=== PATIENT | female | born 1960 | race Hispanic/Latino ===

== ENCOUNTER 2018-12-22 21:25 | Inpatient (IN) | payer SELFPAY ==
[~2018-12-22 21:25] MED LIST: ADRENALIN ONE; INTROPIN DRIP 800 MG/D5W 250 ML IV ONE
[2018-12-22] MEDS ORDERED: NACL 0.9% 1000 ML 1,000 ML ONE ×2 (21:29→21:30)
[2018-12-22] MEDS ORDERED: LACTATED RINGERS 1,000 ML ONE (21:30)
[2018-12-22] MEDS ORDERED: NACL 0.9% 1000 ML 2,000 ML ONE (21:40)
[2018-12-22] MEDS ORDERED: LACTATED RINGERS 1,000 ML IV ONE (21:45)
[2018-12-22] MEDS ORDERED: NACL 0.9% 1000 ML 3,000 ML IV ONE (21:45)
[2018-12-22] MEDS ORDERED: NACL 0.9% 500 ML 500 ML IV ONE (21:57)
[2018-12-22] MEDS ORDERED: LEVOPHED DRIP 4 MG/NS 250 ML 4 MG/250 ML BAG IV ONE (22:03)
[2018-12-22] MEDS: LEVOPHED DRIP 4 MG/NS 250 ML 4 MG/250 ML BAG IV SCH (22:05)
--- NOTE | 2018-12-22 22:17 | Emergency Department Report ---
ED CPR HPI - General Chief Complaint: Cardiac Arrest/CPR Stated Complaint: CARDIC ARREST Time Seen by Provider: 12/22/18 22:10 Source: EMS Mode of arrival: Stretcher Limitations: Other - History of Present Illness Initial Comments: Patient is 58 years old female with history of hypertension, noncompliant with her medication per family report. Patient brought to the emergency room via EMS in full cardiac arrest, CPR in progress. Patient is a witnessed arrest. Patient was walking with her family and all of a sudden she collapsed at approximately 20:33. EMS stated that there was a retained CIRCULATION in the field but patient lost her pulse quickly. Patient initial rhythm was a PEA. Upon arrival to the ER, patient immediately intubated by me after we removed the Yayo airway. CPR continued. ACLS protocol initiated and followed in the ER. A right femoral central line was placed by me for blood and fluid resuscitation. I noticed a round of coffee secretion coming from the Yayo indicating a massive upper GI hemorrhage. I immediately called for 2 units PRBC for emergency transfusion. Patient continued to be in and out of pulse. Patient received approximately 4 L of normal saline and 1 L of lactated Ringer and a 2 units of PRBC. NG tube suctioned a large amount of blood. Patient regained her pulse and a good blood pressure. Patient also started on Levophed drip. I discussed the patient is Dr. Hamilton from gastroenterology. Dr. Hamilton advised to continue resuscitation in here with follow-up on the patient. Complaint: collapsed during activity -: minute(s) (33), hour(s) (20) Place: street Bystander CPR Performed: No Initial Findings in the Field: no pulse, PEA ROSC in the Field: Yes (for 3 minutes) Treatments Prior to Arrival: other airway device - Related Data Allergies Allergy/AdvReac Type Severity Reaction Status Date / Time Unable to Assess Allergy Verified 12/22/18 22:01 ED Review of Systems ROS: Stated complaint: CARDIC ARREST Other details as noted in HPI Comment: Unobtainable due to pts medical conditions ED Physical Exam - General Limitations: Other General appearance: other (CPR in progress) - Head Head exam: Present: atraumatic, normocephalic, normal inspection - Eye Pupils: Present: other (pupils are 4 mm, dilated and nonreactive.) - Neck Neck exam: Present: normal inspection - Respiratory Respiratory exam: Present: other (no spontaneous breathing) - Cardiovascular Cardiovascular Exam: Present: other (no spontaneous heart tones) - GI/Abdominal GI/Abdominal exam: Present: soft, distended - Extremities Exam Extremities exam: Present: normal inspection - Neurological Exam Neurological exam: Present: other (intubated) - Skin Skin exam: Present: warm, intact ED Course Vital Signs 12/22/18 12/22/18 12/22/18 21:28 21:30 21:45 Pulse Rate 80 98 H Respiratory 21 91 H 95 H Rate Blood Pressure 144/124 219/184 O2 Sat by Pulse 93 94 Oximetry 12/22/18 12/22/18 12/22/18 22:00 22:16 22:29 Pulse Rate 67 98 H 100 H Respiratory 14 24 Rate Blood Pressure 90/40 136/54 134/70 O2 Sat by Pulse 92 86 100 Oximetry 12/22/18 12/22/18 12/22/18 22:30 22:45 23:00 Pulse Rate 100 H 100 H 96 H Respiratory 24 16 10 L Rate Blood Pressure 134/70 133/67 129/68 O2 Sat by Pulse 99 100 100 Oximetry 12/22/18 12/22/18 12/22/18 23:15 23:30 23:32 Pulse Rate 98 H 99 H 99 H Respiratory 30 H 30 H 9 L Rate Blood Pressure 129/59 134/70 140/46 O2 Sat by Pulse 100 100 100 Oximetry 12/22/18 12/23/18 12/23/18 23:45 00:00 00:15 Pulse Rate 100 H 101 H 102 H Respiratory 8 L 5 L 20 Rate Blood Pressure 129/43 129/44 115/58 O2 Sat by Pulse 98 100 99 Oximetry 12/23/18 12/23/18 12/23/18 00:30 00:46 00:47 Pulse Rate 105 H 108 H 101 H Respiratory 22 7 L Rate Blood Pressure 115/55 125/43 O2 Sat by Pulse 100 99 100 Oximetry 12/23/18 12/23/18 12/23/18 01:00 01:49 02:00 Pulse Rate 109 H 107 H 106 H Respiratory 8 L 19 35 H Rate Blood Pressure 125/43 125/43 130/61 O2 Sat by Pulse 99 100 88 Oximetry 12/23/18 12/23/18 12/23/18 02:15 02:30 02:46 Pulse Rate 108 H 109 H 109 H Respiratory 32 H 20 12 Rate Blood Pressure 106/73 115/56 116/64 O2 Sat by Pulse 81 L Oximetry 12/23/18 12/23/18 12/23/18 03:00 03:15 03:30 Pulse Rate 109 H 110 H 110 H Respiratory 13 17 20 Rate Blood Pressure 108/65 104/53 57/40 O2 Sat by Pulse Oximetry 12/23/18 12/23/18 12/23/18 03:46 03:58 04:00 Pulse Rate 111 H 108 H 108 H Respiratory 14 15 Rate Blood Pressure 48/33 74/37 O2 Sat by Pulse 92 Oximetry 12/23/18 12/23/18 12/23/18 04:16 04:30 04:45 Pulse Rate 116 H 113 H 115 H Respiratory 15 21 13 Rate Blood Pressure 104/68 89/67 109/76 O2 Sat by Pulse Oximetry 12/23/18 12/23/18 12/23/18 05:00 05:16 05:30 Pulse Rate 113 H 115 H 114 H Respiratory 14 17 20 Rate Blood Pressure 98/43 80/52 80/52 O2 Sat by Pulse Oximetry 12/23/18 12/23/18 12/23/18 05:46 06:00 06:16 Pulse Rate 122 H 121 H 120 H Respiratory 14 16 14 Rate Blood Pressure 136/77 136/77 93/69 O2 Sat by Pulse Oximetry 12/23/18 12/23/18 12/23/18 06:30 06:46 07:00 Pulse Rate 119 H 129 H 124 H Respiratory 14 23 17 Rate Blood Pressure 108/87 108/87 93/69 O2 Sat by Pulse Oximetry 12/23/18 12/23/18 07:16 07:30 Pulse Rate 118 H 119 H Respiratory 20 15 Rate Blood Pressure 119/89 120/74 O2 Sat by Pulse Oximetry - Reevaluation(s) Reevaluation #1: 12/23/18 01:05 Patient evaluated by me multiple times. Patient's family arrived to the ER in able to provide more information. Patient has no stated that patient was sick for the last 3 days with cough and decreased by mouth intake. He stated that she was sitting on the edge of the bed and all of a sudden she change blue he stated that he started CPR on her until the EMS arrived. Patient has been also added that she is a heavy alcohol drinker but she did not drink anything for the last 4 days. I did a CTA chest to rule out pulmonary embolism. - Central Line Placement Right Femoral Consent Obtained: emergent situation Time Out Performed: Yes Patient Placed on Monitor/Pulse Ox: Yes MD Prep: mask, gown, gloves Central Line Prep: Povidone-Iodine 1%, Chlorhexidine scrub, sterile drapes applied Local Anesthesia Used: Lidocaine 2% Central Line Lumen Inserted: triple Central Line Position: good blood return, all ports aspirated, flus, sutured in place with 2-0 Dressing Applied: Tegaderm, sterile gauze/tape Patient Tolerated Procedure: well, no complications Complications: none - Intubation Time Out Performed: Yes Sedative: Etomidate Paralytic: Succinylcholine Laryngoscope: Patricia Size: 4 ET Tube Size: 7.5 Tube Secured Location: teeth Tube Placement Confirmation: visualized tube passing t, equal breath sounds bilat, no breath sounds over epi, confirmation by capnometr Patient Tolerated Procedure: well, no complications Intubation Complications: none ED Medical Decision Making - Lab Data Result diagrams: 12/23/18 07:16 12/23/18 04:24 - Radiology Data Radiology results: report reviewed - Medical Decision Making Patient is 58 years old female with history of hypertension, noncompliant with her medication per family report. Patient brought to the emergency room via EMS in full cardiac arrest, CPR in progress. Patient is a witnessed arrest. Patient was walking with her family and all of a sudden she collapsed at approximately 20:33. EMS stated that there was a retained CIRCULATION in the field but patient lost her pulse quickly. Patient initial rhythm was a PEA. Upon arrival to the ER, patient immediately intubated by me after we removed the Yayo airway. CPR continued. ACLS protocol initiated and followed in the ER. A right femoral central line was placed by me for blood and fluid resuscitation. I noticed a round of coffee secretion coming from the Yayo indicating a massive upper GI hemorrhage. I immediately called for 2 units PRBC for emergency transfusion. Patient continued to be in and out of pulse. Patient received approximately 4 L of normal saline and 1 L of lactated Ringer and a 2 units of PRBC. NG tube suctioned a large amount of blood. Patient regained her pulse and a good blood pressure. Patient also started on Levophed drip. I discussed the patient is Dr. Hamilton from gastroenterology. Dr. Hamilton advised to continue resuscitation in here with follow-up on the patient. I discussed the patient with Dr. Viv Bhatt, she'll return in the patient to medical service. Critical Care Time: Yes Critical care time in (mins) excluding proc time.: 90 Critical care attestation.: If time is entered above; I have spent that time in minutes in the direct care of this critically ill patient, excluding procedure time. ED Disposition Clinical Impression: Cardiopulmonary arrest, GI (gastrointestinal hemorrhage), Elevated liver enzymes, Septic shock, Bilateral pneumonia Disposition: [id number] OP ADMIT IP TO THIS HOSP Is pt being admited?: Yes Condition: Stable
[2018-12-22] MEDS ORDERED: LEVOPHED DRIP 4 MG/NS 250 ML 4 MG/250 ML BAG IV SCH (23:00)
--- NOTE | 2018-12-22 23:02 | XRay Report ---
PROCEDURE: XR CHEST 1V AP TECHNIQUE: Chest radiograph single view. HISTORY: cardiac arrest COMPARISONS: None . FINDINGS: Heart: Normal. Mediastinum/Vessels: Normal. Lungs/Pleural space: Patchy densities are noted in bilateral lower lungs and left upper lung. There is diffuse prominence of interstitial markings. Pleural spaces are clear.. Bony thorax: No acute osseous abnormality. Life support devices: Endotracheal tube is noted terminating about 6.4 cm above the kristine. A nasogas tric tube is seen to extend down into the abdomen and its tip is not included in this study.. IMPRESSION: Infiltrates in bilateral lungs consistent with pneumonia. Prominent interstitial markings may represent interstitial fibrosis versus interstitial edema.. This document is electronically signed by Stanford Beckham MD., Dec 22 2018 11:00:37 PM ET
[2018-12-22 23:08] LABS: Mean Corpuscular HGB Conc 31 % (30-34); Mean Corpuscular Volume 102 fl (79-97); Platelet Count 128 K/mm3 (140-440); Red Cell Distribution Width 17.5 % (13.2-15.2)
[2018-12-22 23:09] LABS: Hematocrit 44.7 % (30.3-42.9); Hemoglobin 13.6 gm/dl (10.1-14.3)
[2018-12-22 23:18] LABS: Calcium 7.1 mg/dL (8.4-10.2)
[2018-12-22 23:22] LABS: Albumin 2.3 g/dL (3.9-5); Bilirubin,Direct 0.6 mg/dL (0-0.2)
[2018-12-22] MEDS ORDERED: ZOSYN/NS 3.375GM/50ML 3.375 GM/50 ML BAG IV ONE (23:27)
[2018-12-22 23:59] LABS: Bacteria,Urine 1+ /HPF (Negative); Bilirubin,Urine NEG (Negative); Blood,Urine NEG (Negative); Color,Urine Amber (Yellow); Hyaline Casts,Urine 8 /LPF; Mucus,Urine 3+ /HPF
[2018-12-23 00:02] LABS: Alanine Aminotransferase TNR units/L (7-56)
[2018-12-23] MEDS ORDERED: LACTATED RINGERS 1,000 ML IV ONE (01:33)
[2018-12-23 01:41] LABS: Alanine Aminotransferase 4619 units/L (7-56)
--- NOTE | 2018-12-23 02:10 | Cat Scan Report ---
PROCEDURE: CT ANGIO CHEST TECHNIQUE: Computerized tomographic angiography of the chest was performed after the IV injection of iodinated nonionic contrast including image processing. The image data was postprocessed using 2-di mensional multiplanar reformatted (MPR) and 3-dimensional (MIP and/or volume rendered) techniques. Au tomated exposure control, adjustment of mA and/or kV according to patient size, or iterative reconstr uction dose optimization techniques were utilized. CT DOSE LENGTH PRODUCT: mGycm HISTORY: cardiac arrest/g g i bleed COMPARISONS: Portable chest 12/22/2018 . FINDINGS: Heart and pericardium: Normal. Thoracic aorta: Normal. Pulmonary vasculature: No evidence of pulmonary embolus. The lungs appear congested.. Lymph nodes: There are several small benign-appearing prevascular space lymph nodes in the mediastin um.. Lungs: The lungs reveal generalized interstitial prominence with reticulonodular infiltrates in both upper lobes lingula right middle lobe. There is extensive consolidation in both lower lobes.. Pleural space: No effusion, thickening, or pneumothorax. Musculoskeletal structures: There are bilateral acute fractures of the third through eighth ribs ant eriorly presumably related to the CPR procedure. Upper abdominal structures: The NG tube is in good position the stomach. There is minimal free fluid along the right hepatic lobe. The endotracheal tube tip is in good position above the kristine.. IMPRESSION: Pulmonary vascular congestion with extensive interstitial changes in both lungs as described. There i s consolidation in both lower lobes. How much of the latter findings related to pulmonary edema versu s pneumonia is uncertain. No evidence of pulmonary embolus or aortic dissection. Satisfactory positioning of the ET tube and NG tube. Acute fractures of the left and right third through eighth ribs anteriorly bilaterally presumably due to CPR procedure.. This document is electronically signed by Josué Canales MD., Dec 23 2018 02:08:24 AM ET
[2018-12-23 02:14] LABS: Hematocrit 53.3 % (30.3-42.9); Hemoglobin 16.8 gm/dl (10.1-14.3)
--- NOTE | 2018-12-23 02:22 | Cat Scan Report ---
PROCEDURE: CT HEAD/BRAIN WO CON TECHNIQUE: Computerized tomography of the head was performed without contrast material. HISTORY: AMS COMPARISONS: None . FINDINGS: Skull and scalp: Normal . Paranasal sinuses: Moderate opacification of the ethmoid and sphenoid sinuses . Ventricles and subarachnoid spaces: The ventricles are slightly small on this study. . . Cerebrum: There is diffuse loss of the sulci identified on this study. The findings are consistent w ith a diffuse anoxic/hypoxic brain injury. . Cerebellum and brainstem: There is no evidence of acute hemorrhage or hematoma. There is some loss o f the cistern surrounding the cerebellar and brainstem region. No herniation is seen on this study. . Vasculature: Normal . Other: None . ASPECTS: 10 IMPRESSION: There is diffuse loss of the sulci involving the cerebral hemispheres. The findings are most consistent with a diffuse anoxic/hypoxic brain injury. No acute hemorrhage or hematoma is seen. There is some loss of the cistern surrounding the cerebellar region as well as the brainstem. No chapis iation is seen on this study. . This document is electronically signed by Gisel Sims DO., Dec 23 2018 02:20:52 AM ET
--- NOTE | 2018-12-23 02:37 | Cat Scan Report ---
PROCEDURE: CT ABDOMEN PELVIS W CON TECHNIQUE: Computerized axial tomography of the abdomen and pelvis was performed after the IV inject ion of iodinated nonionic contrast. CT DOSE LENGTH PRODUCT: mGycm HISTORY: abdominal pain COMPARISONS: None . FINDINGS: Visualized lower thorax: There are extensive infiltrates in both lower lobes with congestion.. Liver: Liver is normal in size. There is a thin low density fluid collection along the right hepatic lobe. This is most likely ascites.. Spleen: Normal size and attenuation. Gallbladder and biliary system: The gallbladder is normal in size. There is pericholecystic fluid marlene und the gallbladder. Stones are not seen.. Pancreas: The pancreas normal size. There is mild peripancreatic edema.. Adrenals: Normal. Kidneys: The kidneys show no evidence of stones or hydronephrosis. The nephrogram is slightly heterog eneous bilaterally.. This may be related to hypoperfusion related to the cardiac arrest.. GI tract: There is moderate distention with air-fluid levels involving multiple small bowel loops co mpatible with a partial mechanical small bowel obstruction the level of the distal ileum. The colon i s decompressed. There are multiple uncomplicated diverticula in the descending and sigmoid colon. The appendix is not seen. The tip of NG tube is in good position in the mid stomach. . Lymph nodes and mesentery: Normal. Vasculature: Normal.. Bladder: There is a Call catheter in the bladder which is decompressed.. Reproductive organs: Normal. Peritoneum: Small amount of free fluid along the right hepatic lobe.. Musculoskeletal structures: Multilevel disc degeneration in the lower thoracic and lumbar spine.. Other: None . IMPRESSION: Partial mechanical small bowel obstruction believed to be at the level of the distal ileum. Uncomplicated colonic diverticulosis. Appendix not identified with certainty. Heterogeneous nephrograms noted bilaterally as described. This may be related to hypoperfusion relate d to the cardiac arrest. Mild pericholecystic fluid and mild edematous changes around the pancreas. Correlation with clinical exam along with serum amylase and lipase recommended. Small amount of ascites along the right hepatic lobe. Extensive infiltrates in both lower lobes. Multilevel disc degeneration in the lower thoracic and lumbar spine. This document is electronically signed by Josué Canales MD., Dec 23 2018 02:35:07 AM ET
[2018-12-23] MEDS ORDERED: SandoSTATIN 500 MCG in NACL 0.9% 100 ML IV SCH (03:17)
[2018-12-23] MEDS ORDERED: SODIUM CHLORIDE FLUSH SYRINGE 10 ML IV PRN (03:19)
[2018-12-23] MEDS ORDERED: ZOFRAN IV PRN (03:19)
[2018-12-23] MEDS ORDERED: VANCOMYCIN/NS 1 GM/250 ML 1 GM/250 ML BAG IV ONE (03:27)
--- NOTE | 2018-12-23 03:30 | History and Physical Report ---
History of Present Illness Date of examination: 12/23/18 History of present illness: 58 -year-old woman with known medical problems was brought to the emergency room because she collapse at home. Spouse admits that state that since last week she has not been feeling well, she had cough productive of yellow phlegm, shortness of breath, generalized weakness, decrease in her ADLs, decreased appetite and sleeping alot. She took a shower last night and complained of her shoulders were hurting, the house and was given her muscle which then she became unresponsive. he started CPR and continued for about 6 minutes before EMS arrived. CPR was continued here in the hospital, she was intubated in the emergency room. There was about 400 mL of blood that was suctioned. Hypotensive, started on the levophed and dopamine drip, given Zosyn. Review of system is unobtainable PAST MEDICAL HISTORY:None PAST SURGICAL HISTORY: None SOCIAL HISTORY: drink i bottle of wine a day, no drugs, smoke 1 pack a day FAMILY HISTORY: Hypertension Medications and Allergies Allergies Allergy/AdvReac Type Severity Reaction Status Date / Time Unable to Assess Allergy Verified 12/22/18 22:01 Active Meds: Active Medications Norepinephrine (Levophed Drip 4 Mg/Ns 250 Ml) 4 mg in 250 mls @ 7.5 mls/hr IV TITR BUD; Protocol Last Admin: 12/22/18 22:05 Dose: 2.67 mcg/min, 10 mls/hr Documented by: Pantoprazole Sodium 80 mg/ (Sodium Chloride) 100 mls @ 10 mls/hr IV DIRECT BUD Octreotide Acetate 500 mcg/ (Sodium Chloride) 101 mls @ 5.05 mls/hr IV TITR ONE; Protocol Stop: 12/23/18 23:16 Sodium Chloride (Nacl 0.9% 1000 Ml) 1,000 mls @ 75 mls/hr IV DIRECT BUD Ondansetron HCl (Zofran) 4 mg IV Q4H PRN PRN Reason: Nausea And Vomiting Sodium Bicarbonate (Sodium Bicarbonate 50meq Syringe) 100 meq IV ONCE ONE Stop: 12/23/18 03:25 Sodium Chloride (Sodium Chloride Flush Syringe 10 Ml) 10 ml IV BID BUD Sodium Chloride (Sodium Chloride Flush Syringe 10 Ml) 10 ml IV PRN PRN PRN Reason: LINE FLUSH Exam - Physical Exam Narrative exam: General Apperance: The patient lying in bed, breathing comfortable, intubated HEENT: Normocephalic, atraumatic. Pupils equally round and minimally reactive to light, unable to do EOM, no sclericterus or JVD or thyromegaly or nodule. , no carotid bruit, mucous membranes moist, unable to examine oral cavity, ET tube in place Heart: S1-S2, regular is rhythm Lungs: Clear to auscultation bilaterally, breathing comfortable Abdomen: Decreased bowel sounds, soft, nondistended, no organomegaly Extremities: Feet are cold, No edema cyanosis clubbing Skin: no rash, nodule, warm and dry Neuro: Sedated - Constitutional Vitals: Temp Pulse Resp BP Pulse Ox 108 H 32 H 106/73 88 12/23/18 02:15 12/23/18 02:15 12/23/18 02:15 12/23/18 02:00 Results - Labs CBC & Chem 7: 12/23/18 07:16 12/23/18 04:24 Labs: Abnormal lab results 12/22/18 12/22/18 12/22/18 Range/Units 21:40 21:50 22:37 WBC (4.5-11.0) K/mm3 Hgb (10.1-14.3) gm/dl Hct (30.3-42.9) % MCV (79-97) fl RDW (13.2-15.2) % Plt Count (140-440) K/mm3 POC ABG pH (7.35-7.45) POC ABG pO2 (80-105) Sodium (137-145) mmol/L Potassium (3.6-5.0) mmol/L Chloride (98-107) mmol/L Carbon Dioxide (22-30) mmol/L BUN (7-17) mg/dL Glucose (65-100) mg/dL POC Glucose 142 H (70-105) Lactic Acid (0.7-2.0) mmol/L Calcium (8.4-10.2) mg/dL Direct Bilirubin (0-0.2) mg/dL AST (5-40) units/L ALT (7-56) units/L Alkaline Phosphatase (35-129) units/L Total Protein (6.3-8.2) g/dL Albumin (3.9-5) g/dL Urine WBC (Auto) (0.0-6.0) /HPF Crossmatch See Detail See Detail 12/22/18 12/22/18 12/22/18 Range/Units 22:55 22:55 22:55 WBC 32.1 H (4.5-11.0) K/mm3 Hgb (10.1-14.3) gm/dl Hct 44.7 H (30.3-42.9) % MCV 102 H (79-97) fl RDW 17.5 H (13.2-15.2) % Plt Count 128 L (140-440) K/mm3 POC ABG pH (7.35-7.45) POC ABG pO2 (80-105) Sodium 134 L (137-145) mmol/L Potassium 5.8 H (3.6-5.0) mmol/L Chloride 94.6 L (98-107) mmol/L Carbon Dioxide 17 L (22-30) mmol/L BUN 54 H (7-17) mg/dL Glucose 193 H (65-100) mg/dL POC Glucose (70-105) Lactic Acid (0.7-2.0) mmol/L Calcium 7.1 L (8.4-10.2) mg/dL Direct Bilirubin 0.6 H (0-0.2) mg/dL AST (5-40) units/L ALT (7-56) units/L Alkaline Phosphatase 149 H (35-129) units/L Total Protein 4.7 L (6.3-8.2) g/dL Albumin 2.3 L (3.9-5) g/dL Urine WBC (Auto) (0.0-6.0) /HPF Crossmatch 12/22/18 12/22/18 12/22/18 Range/Units 23:02 23:10 23:41 WBC (4.5-11.0) K/mm3 Hgb (10.1-14.3) gm/dl Hct (30.3-42.9) % MCV (79-97) fl RDW (13.2-15.2) % Plt Count (140-440) K/mm3 POC ABG pH 6.770 L (7.35-7.45) POC ABG pO2 245 H (80-105) Sodium (137-145) mmol/L Potassium (3.6-5.0) mmol/L Chloride (98-107) mmol/L Carbon Dioxide (22-30) mmol/L BUN (7-17) mg/dL Glucose (65-100) mg/dL POC Glucose (70-105) Lactic Acid 11.80 H* (0.7-2.0) mmol/L Calcium (8.4-10.2) mg/dL Direct Bilirubin (0-0.2) mg/dL AST (5-40) units/L ALT (7-56) units/L Alkaline Phosphatase (35-129) units/L Total Protein (6.3-8.2) g/dL Albumin (3.9-5) g/dL Urine WBC (Auto) 16.0 H (0.0-6.0) /HPF Crossmatch 12/23/18 12/23/18 12/23/18 Range/Units 00:14 00:47 01:56 WBC (4.5-11.0) K/mm3 Hgb 16.8 H D (10.1-14.3) gm/dl Hct 53.3 H D (30.3-42.9) % MCV (79-97) fl RDW (13.2-15.2) % Plt Count (140-440) K/mm3 POC ABG pH 6.963 L (7.35-7.45) POC ABG pO2 339 H (80-105) Sodium (137-145) mmol/L Potassium (3.6-5.0) mmol/L Chloride (98-107) mmol/L Carbon Dioxide (22-30) mmol/L BUN (7-17) mg/dL Glucose (65-100) mg/dL POC Glucose (70-105) Lactic Acid (0.7-2.0) mmol/L Calcium (8.4-10.2) mg/dL Direct Bilirubin (0-0.2) mg/dL AST 9955 H (5-40) units/L ALT 4619 H (7-56) units/L Alkaline Phosphatase (35-129) units/L Total Protein (6.3-8.2) g/dL Albumin (3.9-5) g/dL Urine WBC (Auto) (0.0-6.0) /HPF Crossmatch 12/23/18 Range/Units 01:56 WBC (4.5-11.0) K/mm3 Hgb (10.1-14.3) gm/dl Hct (30.3-42.9) % MCV (79-97) fl RDW (13.2-15.2) % Plt Count (140-440) K/mm3 POC ABG pH (7.35-7.45) POC ABG pO2 (80-105) Sodium (137-145) mmol/L Potassium (3.6-5.0) mmol/L Chloride (98-107) mmol/L Carbon Dioxide (22-30) mmol/L BUN (7-17) mg/dL Glucose (65-100) mg/dL POC Glucose (70-105) Lactic Acid 9.00 H* (0.7-2.0) mmol/L Calcium (8.4-10.2) mg/dL Direct Bilirubin (0-0.2) mg/dL AST (5-40) units/L ALT (7-56) units/L Alkaline Phosphatase (35-129) units/L Total Protein (6.3-8.2) g/dL Albumin (3.9-5) g/dL Urine WBC (Auto) (0.0-6.0) /HPF Crossmatch - Imaging and Cardiology CT scan - abdomen: report reviewed CT scan - chest: report reviewed CT Scan - head: report reviewed CT scan - pelvis: report reviewed Assessment and Plan Cardiac arrest Acute respiratory failure Septic shock Bilateral pneumonia in light small bowel obstruction Upper GI bleed Partial small bowel obstruction Anoxic brain injury Urinary tract infection Hyperkalemia Notable rib fractures Shock liver Alcohol abuse Plan Admit to medicine Continue Levophed, dopamkine drip, start iv fluid, antibiotics Start Protonix, octreotide drip, check serial hemoglobin Consult GI, critical care, cardiology Check cardiac enzymes, echo, PT/INR G-tube in place, consult surgery Give cocktail for hyperkalemia Prognosis is poor, discussed with and sister at bedside DVT prophylaxis Addendum Coagulopathy, transfuse 1 unit FFP
[2018-12-23] MEDS ORDERED: CALCIUM CHLORIDE 1,000 MG in NACL 0.9% 100 ML IV ONE (03:31)
[2018-12-23] MEDS ORDERED: KIONEX PR ONE (03:31)
[2018-12-23] MEDS ORDERED: D50W (25GM) Syringe IV ONE (03:32)
[2018-12-23] MEDS ORDERED: HumuLIN R SUB-Q ONE (03:33)
[2018-12-23] MEDS ORDERED: NACL 0.9% 1000 ML 1,000 ML ONE (03:36)
[2018-12-23] MEDS ORDERED: PROTONIX 80 MG in NACL 0.9% 100 ML IV SCH (04:00)
[2018-12-23] MEDS ORDERED: NACL 0.9% 1000 ML 1,000 ML IV SCH ×2 (04:00→10:00)
[2018-12-23 04:08] LABS: Hematocrit 49.6 % (30.3-42.9); Hemoglobin 16.3 gm/dl (10.1-14.3); Mean Corpuscular HGB Conc 33 % (30-34); Mean Corpuscular Volume 94 fl (79-97); Red Blood Count 5.26 M/mm3 (3.65-5.03); Red Cell Distribution Width 17.3 % (13.2-15.2)
[2018-12-23] MEDS: LEVOPHED DRIP 4 MG/NS 250 ML 4 MG/250 ML BAG IV SCH (04:20)
[2018-12-23 04:43] LABS: Calcium 8.1 mg/dL (8.4-10.2)
[2018-12-23 05:15] LABS: INR 3.81 (0.87-1.13)
[2018-12-23 05:16] LABS: Partial Thromboplastin Time 48.7 Sec. (24.2-36.6)
[2018-12-23 05:36] LABS: Chol/HDL Ratio 6.25 %
[2018-12-23] MEDS ORDERED: ZOSYN/NS 4.5GM/100ML 4.5 GM/100 ML VIAL IV SCH (06:00)
[2018-12-23 06:12] LABS: Band Neutrophils # (Manual) 2.9 K/mm3; Basophils % (Manual) 0 % (0.0-1.8); Eosinophils % (Manual) 0 % (0.0-4.3); Monocytes % (Manual) 3.5 % (0.0-7.3); Nucleated Red Blood Cells 11.5 % (0.0-0.9); Total Cells Counted 200
[2018-12-23 06:13] LABS: Anisocytosis 1+
[2018-12-23 06:14] LABS: Platelet Estimate Consistent w Auto
[2018-12-23 06:22] LABS: Macrocytosis 1+
[2018-12-23] MEDS ORDERED: NACL 0.9% 500 ML 500 ML IV ONE (06:36)
[2018-12-23 06:41] LABS: Platelet Count 96 K/mm3 (140-440)
[2018-12-23 06:56] LABS: Basophils % (Manual) 0 % (0.0-1.8); Total Cells Counted 200
[2018-12-23 06:57] LABS: Anisocytosis 1+; Band Neutrophils # (Manual) 3.6 K/mm3; Eosinophils % (Manual) 0 % (0.0-4.3); Macrocytosis 1+; Nucleated Red Blood Cells 12.5 % (0.0-0.9); Platelet Estimate Consistent w Auto
[2018-12-23 07:28] LABS: Hematocrit 51.1 % (30.3-42.9); Hemoglobin 16.8 gm/dl (10.1-14.3)
--- NOTE | 2018-12-23 09:11 | Gastroenterology Consultation ---
History of Present Illness - Reason for Consult Consult date: 12/23/18 GI bleed Requesting physician: GLENROY LANDAVERDE - History of Present Illness Ms Espinal is a 58 yo wf with no known significant medical history who presented with dyspnea, fatigue, productive cough over several days; pt was in cardiac arrest upon arrival to the ED s/p ACLS with ROSC; history gathered from patient's at bedside and chart review. Pt currently intubated/on pressors. She was in her usual state of active health until ~1 week ago. she developed productive cough, complaints of sob, and worsening lethargy/fatigue. during CPR in the ED, pt had large amount of coffee ground output from NG; she has had no further active bleeding since arrival. Pt also with acute liver injury and elevated INR; no recent tylenol use or other new medications. Past History Past Medical History: other (unable to obtain) Past Surgical History: Other (no reported surgical history) Social history: other (UTO) Family history: other (UTO) Medications and Allergies Allergies Allergy/AdvReac Type Severity Reaction Status Date / Time Unable to Assess Allergy Verified 12/22/18 22:01 Active Meds: Active Medications Norepinephrine (Levophed Drip 4 Mg/Ns 250 Ml) 4 mg in 250 mls @ 7.5 mls/hr IV TITR BUD; Protocol Last Titration: 12/23/18 05:47 Dose: 5.33 mcg/min, 20 mls/hr Documented by: Pantoprazole Sodium 80 mg/ (Sodium Chloride) 100 mls @ 10 mls/hr IV DIRECT BUD Last Admin: 12/23/18 04:19 Dose: 8 mg/hr, 10 mls/hr Documented by: Octreotide Acetate 500 mcg/ (Sodium Chloride) 101 mls @ 5.05 mls/hr IV TITR BUD; Protocol Last Admin: 12/23/18 04:19 Dose: 25 mcg/hr, 5.05 mls/hr Documented by: Sodium Chloride (Nacl 0.9% 1000 Ml) 1,000 mls @ 75 mls/hr IV DIRECT BUD Last Admin: 12/23/18 04:20 Dose: 75 mls/hr Documented by: Piperacillin Sod/Tazobactam Sod (Zosyn/Ns 2.25 Gm/50ml) 2.25 gm in 50 mls @ 100 mls/hr IV Q6HR BUD Ondansetron HCl (Zofran) 4 mg IV Q4H PRN PRN Reason: Nausea And Vomiting Sodium Chloride (Sodium Chloride Flush Syringe 10 Ml) 10 ml IV BID BUD Sodium Chloride (Sodium Chloride Flush Syringe 10 Ml) 10 ml IV PRN PRN PRN Reason: LINE FLUSH Reviewed/updated patient's home and current medications Review of Systems - Review of Systems ROS unobtainable: due to endotracheal tube, due to mental status Exam - Constitutional Vital Signs: Temp Pulse Resp BP Pulse Ox 119 H 23 120/74 92 12/23/18 07:49 12/23/18 07:49 12/23/18 07:30 12/23/18 03:58 General appearance: other (intubated/sedated) - EENT ENT: other (+ OG tube) - Respiratory Respiratory effort: other (on vent) Respiratory: bilateral: diminished - Cardiovascular Rhythm: regular Heart Sounds: Present: S1 & S2 Extremity abnormal: pulses diminished - Gastrointestinal General gastrointestinal: Present: distended, hypoactive bowel sounds - Neurologic Neurological: other (intubated/sedation) - Psychiatric Psychiatric: other - Labs CBC & Chem 7: 12/23/18 07:16 12/23/18 04:24 Lab Results: Laboratory Results - last 24 hr 12/22/18 12/22/18 12/22/18 21:40 21:50 22:37 WBC RBC Hgb Hct MCV MCH MCHC RDW Plt Count Lymph # Add Manual Diff Total Counted Seg Neutrophils % Seg Neuts % (Manual) Band Neutrophils % Lymphocytes % (Manual) Reactive Lymphs % (Man) Monocytes % (Manual) Eosinophils % (Manual) Basophils % (Manual) Metamyelocytes % Myelocytes % Promyelocytes % Blast Cells % Nucleated RBC % Seg Neutrophils # Man Band Neutrophils # Lymphocytes # (Manual) Abs React Lymphs (Man) Monocytes # (Manual) Eosinophils # (Manual) Basophils # (Manual) Metamyelocytes # Myelocytes # Promyelocytes # Blast Cells # WBC Morphology Hypersegmented Neuts Hyposegmented Neuts Hypogranular Neuts Smudge Cells Toxic Granulation Toxic Vacuolation Dohle Bodies Pelger-Huet Anomaly Dave Rods Platelet Estimate Clumped Platelets Plt Clumps, EDTA Large Platelets Giant Platelets Platelet Satelliting Plt Morphology Comment RBC Morphology Dimorphic RBCs Polychromasia Hypochromasia Poikilocytosis Anisocytosis Microcytosis Macrocytosis Spherocytes Pappenheimer Bodies Sickle Cells Target Cells Tear Drop Cells Ovalocytes Helmet Cells [place] Bodies Muse Rings [place] Cells Bite Cells Crenated Cell Elliptocytes Acanthocytes (Spur) Rouleaux Hemoglobin C Crystals Schistocytes Malaria parasites Jesús Bodies Hem Pathologist Commnt PT INR APTT POC ABG pH POC ABG pCO2 POC ABG pO2 POC ABG HCO3 POC ABG Total CO2 POC ABG O2 Sat POC ABG Base Excess FiO2 Sodium Potassium Chloride Carbon Dioxide Anion Gap BUN Creatinine Estimated GFR BUN/Creatinine Ratio Glucose POC Glucose 142 H Lactic Acid Calcium Total Bilirubin Direct Bilirubin Indirect Bilirubin AST ALT Alkaline Phosphatase Total Creatine Kinase CK-MB (CK-2) CK-MB (CK-2) Rel Index Troponin T Total Protein Albumin Albumin/Globulin Ratio Triglycerides Cholesterol LDL Cholesterol Direct HDL Cholesterol Cholesterol/HDL Ratio Urine Color Urine Turbidity Urine pH Ur Specific [place] Urine Protein Urine Glucose (UA) Urine Ketones Urine Blood Urine Nitrite Urine Bilirubin Urine Urobilinogen Ur Leukocyte Esterase Urine WBC (Auto) Urine RBC (Auto) U Epithel Cells (Auto) Urine Bacteria (Auto) Hyaline Casts Urine Mucus Blood Type B POSITIVE Cancelled Antibody Screen TNR Cancelled MARK Antibody Screen Negative Crossmatch See Detail See Detail 12/22/18 12/22/18 12/22/18 22:55 22:55 22:55 WBC 32.1 H RBC 4.40 Hgb 13.6 Hct 44.7 H MCV 102 H MCH 31 MCHC 31 RDW 17.5 H Plt Count 128 L Lymph # Recreation Programmer Add Manual Diff Complete Total Counted 200 Seg Neutrophils % Seg Neuts % (Manual) 63.0 Band Neutrophils % 9.0 Lymphocytes % (Manual) 23.0 Reactive Lymphs % (Man) 1.5 Monocytes % (Manual) 3.5 Eosinophils % (Manual) 0 Basophils % (Manual) 0 Metamyelocytes % 0 Myelocytes % 0 Promyelocytes % 0 Blast Cells % 0 Nucleated RBC % 11.5 H Seg Neutrophils # Man 20.2 H Band Neutrophils # 2.9 Lymphocytes # (Manual) 7.4 H Abs React Lymphs (Man) 0.5 Monocytes # (Manual) 1.1 H Eosinophils # (Manual) 0.0 Basophils # (Manual) 0.0 Metamyelocytes # 0.0 Myelocytes # 0.0 Promyelocytes # 0.0 Blast Cells # 0.0 WBC Morphology Hypersegmented Neuts Not Reportable Hyposegmented Neuts Not Reportable Hypogranular Neuts Not Reportable Smudge Cells Not Reportable Toxic Granulation Not Reportable Toxic Vacuolation Not Reportable Dohle Bodies Not Reportable Pelger-Huet Anomaly Not Reportable Dave Rods Not Reportable Platelet Estimate Consistent w auto Clumped Platelets Not Reportable Plt Clumps, EDTA Not Reportable Large Platelets Not Reportable Giant Platelets Not Reportable Platelet Satelliting Not Reportable Plt Morphology Comment Not Reportable RBC Morphology Not Reportable Dimorphic RBCs Not Reportable Polychromasia Not Reportable Hypochromasia Not Reportable Poikilocytosis Not Reportable Anisocytosis 1+ Microcytosis Not Reportable Macrocytosis 1+ Spherocytes Not Reportable Pappenheimer Bodies Not Reportable Sickle Cells Not Reportable Target Cells Not Reportable Tear Drop Cells Not Reportable Ovalocytes Not Reportable Helmet Cells Not Reportable [place] Bodies Not Reportable Muse Rings Not Reportable [place] Cells Not Reportable Bite Cells Not Reportable Crenated Cell Not Reportable Elliptocytes Not Reportable Acanthocytes (Spur) Not Reportable Rouleaux Not Reportable Hemoglobin C Crystals Not Reportable Schistocytes Not Reportable Malaria parasites Not Reportable Jesús Bodies Not Reportable Hem Pathologist Commnt Sent to pathology PT INR APTT POC ABG pH POC ABG pCO2 POC ABG pO2 POC ABG HCO3 POC ABG Total CO2 POC ABG O2 Sat POC ABG Base Excess FiO2 Sodium 134 L Potassium 5.8 H Chloride 94.6 L Carbon Dioxide 17 L Anion Gap 28 BUN 54 H Creatinine 1.2 Estimated GFR 46 BUN/Creatinine Ratio 45 Glucose 193 H POC Glucose Lactic Acid Calcium 7.1 L Total Bilirubin 0.80 Direct Bilirubin 0.6 H Indirect Bilirubin 0.2 AST TNR ALT TNR Alkaline Phosphatase 149 H Total Creatine Kinase CK-MB (CK-2) CK-MB (CK-2) Rel Index Troponin T Total Protein 4.7 L Albumin 2.3 L Albumin/Globulin Ratio 1.0 Triglycerides Cholesterol LDL Cholesterol Direct HDL Cholesterol Cholesterol/HDL Ratio Urine Color Urine Turbidity Urine pH Ur Specific [place] Urine Protein Urine Glucose (UA) Urine Ketones Urine Blood Urine Nitrite Urine Bilirubin Urine Urobilinogen Ur Leukocyte Esterase Urine WBC (Auto) Urine RBC (Auto) U Epithel Cells (Auto) Urine Bacteria (Auto) Hyaline Casts Urine Mucus Blood Type Antibody Screen MARK Antibody Screen Crossmatch 12/22/18 12/22/18 12/22/18 23:02 23:10 23:41 WBC RBC Hgb Hct MCV MCH MCHC RDW Plt Count Lymph # Add Manual Diff Total Counted Seg Neutrophils % Seg Neuts % (Manual) Band Neutrophils % Lymphocytes % (Manual) Reactive Lymphs % (Man) Monocytes % (Manual) Eosinophils % (Manual) Basophils % (Manual) Metamyelocytes % Myelocytes % Promyelocytes % Blast Cells % Nucleated RBC % Seg Neutrophils # Man Band Neutrophils # Lymphocytes # (Manual) Abs React Lymphs (Man) Monocytes # (Manual) Eosinophils # (Manual) Basophils # (Manual) Metamyelocytes # Myelocytes # Promyelocytes # Blast Cells # WBC Morphology Hypersegmented Neuts Hyposegmented Neuts Hypogranular Neuts Smudge Cells Toxic Granulation Toxic Vacuolation Dohle Bodies Pelger-Huet Anomaly Dave Rods Platelet Estimate Clumped Platelets Plt Clumps, EDTA Large Platelets Giant Platelets Platelet Satelliting Plt Morphology Comment RBC Morphology Dimorphic RBCs Polychromasia Hypochromasia Poikilocytosis Anisocytosis Microcytosis Macrocytosis Spherocytes Pappenheimer Bodies Sickle Cells Target Cells Tear Drop Cells Ovalocytes Helmet Cells [place] Bodies Muse Rings [place] Cells Bite Cells Crenated Cell Elliptocytes Acanthocytes (Spur) Rouleaux Hemoglobin C Crystals Schistocytes Malaria parasites Jesús Bodies Hem Pathologist Commnt PT INR APTT POC ABG pH 6.770 L POC ABG pCO2 POC ABG pO2 245 H POC ABG HCO3 POC ABG Total CO2 POC ABG O2 Sat POC ABG Base Excess FiO2 100 Sodium Potassium Chloride Carbon Dioxide Anion Gap BUN Creatinine Estimated GFR BUN/Creatinine Ratio Glucose POC Glucose Lactic Acid 11.80 H* Calcium Total Bilirubin Direct Bilirubin Indirect Bilirubin AST ALT Alkaline Phosphatase Total Creatine Kinase CK-MB (CK-2) CK-MB (CK-2) Rel Index Troponin T Total Protein Albumin Albumin/Globulin Ratio Triglycerides Cholesterol LDL Cholesterol Direct HDL Cholesterol Cholesterol/HDL Ratio Urine Color Deisy Urine Turbidity Cloudy Urine pH 5.0 Ur Specific [place] 1.019 Urine Protein 100 mg/dl Urine Glucose (UA) Neg Urine Ketones Neg Urine Blood Neg Urine Nitrite Neg Urine Bilirubin Neg Urine Urobilinogen 4.0 Ur Leukocyte Esterase Neg Urine WBC (Auto) 16.0 H Urine RBC (Auto) 7.0 U Epithel Cells (Auto) 4.0 Urine Bacteria (Auto) 1+ Hyaline Casts 8 Urine Mucus 3+ Blood Type Antibody Screen MARK Antibody Screen Crossmatch 12/22/18 12/23/18 12/23/18 23:41 00:14 00:47 WBC RBC Hgb Hct MCV MCH MCHC RDW Plt Count Lymph # Add Manual Diff Total Counted Seg Neutrophils % Seg Neuts % (Manual) Band Neutrophils % Lymphocytes % (Manual) Reactive Lymphs % (Man) Monocytes % (Manual) Eosinophils % (Manual) Basophils % (Manual) Metamyelocytes % Myelocytes % Promyelocytes % Blast Cells % Nucleated RBC % Seg Neutrophils # Man Band Neutrophils # Lymphocytes # (Manual) Abs React Lymphs (Man) Monocytes # (Manual) Eosinophils # (Manual) Basophils # (Manual) Metamyelocytes # Myelocytes # Promyelocytes # Blast Cells # WBC Morphology Hypersegmented Neuts Hyposegmented Neuts Hypogranular Neuts Smudge Cells Toxic Granulation Toxic Vacuolation Dohle Bodies Pelger-Huet Anomaly Dave Rods Platelet Estimate Clumped Platelets Plt Clumps, EDTA Large Platelets Giant Platelets Platelet Satelliting Plt Morphology Comment RBC Morphology Dimorphic RBCs Polychromasia Hypochromasia Poikilocytosis Anisocytosis Microcytosis Macrocytosis Spherocytes Pappenheimer Bodies Sickle Cells Target Cells Tear Drop Cells Ovalocytes Helmet Cells [place] Bodies Muse Rings [place] Cells Bite Cells Crenated Cell Elliptocytes Acanthocytes (Spur) Rouleaux Hemoglobin C Crystals Schistocytes Malaria parasites Jesús Bodies Hem Pathologist Commnt PT INR APTT POC ABG pH 6.963 L POC ABG pCO2 POC ABG pO2 339 H POC ABG HCO3 23.0 POC ABG Total CO2 26 POC ABG O2 Sat 100 POC ABG Base Excess -9 FiO2 Sodium Potassium Chloride Carbon Dioxide Anion Gap BUN Creatinine Estimated GFR BUN/Creatinine Ratio Glucose POC Glucose Lactic Acid Calcium Total Bilirubin Direct Bilirubin Indirect Bilirubin AST 9955 H ALT 4619 H Alkaline Phosphatase Total Creatine Kinase CK-MB (CK-2) CK-MB (CK-2) Rel Index Troponin T < 0.010 Total Protein Albumin Albumin/Globulin Ratio Triglycerides Cholesterol LDL Cholesterol Direct HDL Cholesterol Cholesterol/HDL Ratio Urine Color Urine Turbidity Urine pH Ur Specific [place] Urine Protein Urine Glucose (UA) Urine Ketones Urine Blood Urine Nitrite Urine Bilirubin Urine Urobilinogen Ur Leukocyte Esterase Urine WBC (Auto) Urine RBC (Auto) U Epithel Cells (Auto) Urine Bacteria (Auto) Hyaline Casts Urine Mucus Blood Type Antibody Screen MARK Antibody Screen Crossmatch 12/23/18 12/23/18 12/23/18 01:56 01:56 03:35 WBC 32.4 H RBC 5.26 H Hgb 16.8 H D 16.3 H Hct 53.3 H D 49.6 H MCV 94 MCH 31 MCHC 33 RDW 17.3 H Plt Count 96 L Lymph # Add Manual Diff Complete Total Counted 200 Seg Neutrophils % Recreation Programmer Seg Neuts % (Manual) 72.5 H Band Neutrophils % 11.0 Lymphocytes % (Manual) 10.0 L Reactive Lymphs % (Man) 1.5 Monocytes % (Manual) 5.0 Eosinophils % (Manual) 0 Basophils % (Manual) 0 Metamyelocytes % 0 Myelocytes % 0 Promyelocytes % 0 Blast Cells % 0 Nucleated RBC % 12.5 H Seg Neutrophils # Man 23.5 H Band Neutrophils # 3.6 Lymphocytes # (Manual) 3.2 Abs React Lymphs (Man) 0.5 Monocytes # (Manual) 1.6 H Eosinophils # (Manual) 0.0 Basophils # (Manual) 0.0 Metamyelocytes # 0.0 Myelocytes # 0.0 Promyelocytes # 0.0 Blast Cells # 0.0 WBC Morphology Not Reportable Hypersegmented Neuts Not Reportable Hyposegmented Neuts Not Reportable Hypogranular Neuts Not Reportable Smudge Cells Not Reportable Toxic Granulation Not Reportable Toxic Vacuolation Not Reportable Dohle Bodies Not Reportable Pelger-Huet Anomaly Not Reportable Dave Rods Not Reportable Platelet Estimate Consistent w auto Clumped Platelets Not Reportable Plt Clumps, EDTA Not Reportable Large Platelets Not Reportable Giant Platelets Not Reportable Platelet Satelliting Not Reportable Plt Morphology Comment Not Reportable RBC Morphology Not Reportable Dimorphic RBCs Not Reportable Polychromasia Not Reportable Hypochromasia Not Reportable Poikilocytosis Not Reportable Anisocytosis 1+ Microcytosis Not Reportable Macrocytosis 1+ Spherocytes Not Reportable Pappenheimer Bodies Not Reportable Sickle Cells Not Reportable Target Cells Not Reportable Tear Drop Cells Not Reportable Ovalocytes Not Reportable Helmet Cells Not Reportable [place] Bodies Not Reportable Muse Rings Not Reportable [place] Cells Not Reportable Bite Cells Not Reportable Crenated Cell Not Reportable Elliptocytes Not Reportable Acanthocytes (Spur) Not Reportable Rouleaux Not Reportable Hemoglobin C Crystals Not Reportable Schistocytes Not Reportable Malaria parasites Not Reportable Jesús Bodies Not Reportable Hem Pathologist Commnt No PT INR APTT POC ABG pH POC ABG pCO2 POC ABG pO2 POC ABG HCO3 POC ABG Total CO2 POC ABG O2 Sat POC ABG Base Excess FiO2 Sodium Potassium Chloride Carbon Dioxide Anion Gap BUN Creatinine Estimated GFR BUN/Creatinine Ratio Glucose POC Glucose Lactic Acid 9.00 H* Calcium Total Bilirubin Direct Bilirubin Indirect Bilirubin AST ALT Alkaline Phosphatase Total Creatine Kinase CK-MB (CK-2) CK-MB (CK-2) Rel Index Troponin T Total Protein Albumin Albumin/Globulin Ratio Triglycerides Cholesterol LDL Cholesterol Direct HDL Cholesterol Cholesterol/HDL Ratio Urine Color Urine Turbidity Urine pH Ur Specific [place] Urine Protein Urine Glucose (UA) Urine Ketones Urine Blood Urine Nitrite Urine Bilirubin Urine Urobilinogen Ur Leukocyte Esterase Urine WBC (Auto) Urine RBC (Auto) U Epithel Cells (Auto) Urine Bacteria (Auto) Hyaline Casts Urine Mucus Blood Type Antibody Screen MARK Antibody Screen Crossmatch 12/23/18 12/23/18 12/23/18 03:35 04:01 04:24 WBC RBC Hgb Hct MCV MCH MCHC RDW Plt Count Lymph # Add Manual Diff Total Counted Seg Neutrophils % Seg Neuts % (Manual) Band Neutrophils % Lymphocytes % (Manual) Reactive Lymphs % (Man) Monocytes % (Manual) Eosinophils % (Manual) Basophils % (Manual) Metamyelocytes % Myelocytes % Promyelocytes % Blast Cells % Nucleated RBC % Seg Neutrophils # Man Band Neutrophils # Lymphocytes # (Manual) Abs React Lymphs (Man) Monocytes # (Manual) Eosinophils # (Manual) Basophils # (Manual) Metamyelocytes # Myelocytes # Promyelocytes # Blast Cells # WBC Morphology TNR Hypersegmented Neuts Hyposegmented Neuts Hypogranular Neuts Smudge Cells Toxic Granulation Toxic Vacuolation Dohle Bodies Pelger-Huet Anomaly Dave Rods Platelet Estimate Clumped Platelets Plt Clumps, EDTA Large Platelets Giant Platelets Platelet Satelliting Plt Morphology Comment RBC Morphology Dimorphic RBCs Polychromasia Hypochromasia Poikilocytosis Anisocytosis Microcytosis Macrocytosis Spherocytes Pappenheimer Bodies Sickle Cells Target Cells Tear Drop Cells Ovalocytes Helmet Cells [place] Bodies Muse Rings [place] Cells Bite Cells Crenated Cell Elliptocytes Acanthocytes (Spur) Rouleaux Hemoglobin C Crystals Schistocytes Malaria parasites Jesús Bodies Hem Pathologist Commnt PT INR APTT POC ABG pH 7.268 L POC ABG pCO2 43.0 POC ABG pO2 68 L POC ABG HCO3 19.7 POC ABG Total CO2 21 POC ABG O2 Sat 90 POC ABG Base Excess -7 FiO2 70 Sodium Potassium Chloride Carbon Dioxide Anion Gap BUN Creatinine Estimated GFR BUN/Creatinine Ratio Glucose POC Glucose Lactic Acid 8.60 H* Calcium Total Bilirubin Direct Bilirubin Indirect Bilirubin AST ALT Alkaline Phosphatase Total Creatine Kinase CK-MB (CK-2) CK-MB (CK-2) Rel Index Troponin T Total Protein Albumin Albumin/Globulin Ratio Triglycerides Cholesterol LDL Cholesterol Direct HDL Cholesterol Cholesterol/HDL Ratio Urine Color Urine Turbidity Urine pH Ur Specific [place] Urine Protein Urine Glucose (UA) Urine Ketones Urine Blood Urine Nitrite Urine Bilirubin Urine Urobilinogen Ur Leukocyte Esterase Urine WBC (Auto) Urine RBC (Auto) U Epithel Cells (Auto) Urine Bacteria (Auto) Hyaline Casts Urine Mucus Blood Type Antibody Screen MARK Antibody Screen Crossmatch 12/23/18 12/23/18 12/23/18 04:24 04:24 04:24 WBC RBC Hgb Hct MCV MCH MCHC RDW Plt Count Lymph # Add Manual Diff Total Counted Seg Neutrophils % Seg Neuts % (Manual) Band Neutrophils % Lymphocytes % (Manual) Reactive Lymphs % (Man) Monocytes % (Manual) Eosinophils % (Manual) Basophils % (Manual) Metamyelocytes % Myelocytes % Promyelocytes % Blast Cells % Nucleated RBC % Seg Neutrophils # Man Band Neutrophils # Lymphocytes # (Manual) Abs React Lymphs (Man) Monocytes # (Manual) Eosinophils # (Manual) Basophils # (Manual) Metamyelocytes # Myelocytes # Promyelocytes # Blast Cells # WBC Morphology Hypersegmented Neuts Hyposegmented Neuts Hypogranular Neuts Smudge Cells Toxic Granulation Toxic Vacuolation Dohle Bodies Pelger-Huet Anomaly Dave Rods Platelet Estimate Clumped Platelets Plt Clumps, EDTA Large Platelets Giant Platelets Platelet Satelliting Plt Morphology Comment RBC Morphology Dimorphic RBCs Polychromasia Hypochromasia Poikilocytosis Anisocytosis Microcytosis Macrocytosis Spherocytes Pappenheimer Bodies Sickle Cells Target Cells Tear Drop Cells Ovalocytes Helmet Cells [place] Bodies Muse Rings [place] Cells Bite Cells Crenated Cell Elliptocytes Acanthocytes (Spur) Rouleaux Hemoglobin C Crystals Schistocytes Malaria parasites Jesús Bodies Hem Pathologist Commnt PT 40.2 H INR 3.81 H APTT 48.7 H POC ABG pH POC ABG pCO2 POC ABG pO2 POC ABG HCO3 POC ABG Total CO2 POC ABG O2 Sat POC ABG Base Excess FiO2 Sodium 139 Potassium 4.8 Chloride 95.4 L Carbon Dioxide 26 D Anion Gap 22 BUN 57 H Creatinine 1.5 H Estimated GFR 36 BUN/Creatinine Ratio 38 Glucose 214 H POC Glucose Lactic Acid Calcium 8.1 L Total Bilirubin Direct Bilirubin Indirect Bilirubin AST ALT Alkaline Phosphatase Total Creatine Kinase 528 H CK-MB (CK-2) 14.0 H CK-MB (CK-2) Rel Index 2.6 Troponin T 0.088 H D Total Protein Albumin Albumin/Globulin Ratio Triglycerides 110 Cholesterol 75 LDL Cholesterol Direct 46 L HDL Cholesterol 12 L Cholesterol/HDL Ratio 6.25 Urine Color Urine Turbidity Urine pH Ur Specific [place] Urine Protein Urine Glucose (UA) Urine Ketones Urine Blood Urine Nitrite Urine Bilirubin Urine Urobilinogen Ur Leukocyte Esterase Urine WBC (Auto) Urine RBC (Auto) U Epithel Cells (Auto) Urine Bacteria (Auto) Hyaline Casts Urine Mucus Blood Type Antibody Screen MARK Antibody Screen Crossmatch 12/23/18 12/23/18 12/23/18 05:33 07:16 07:20 WBC RBC Hgb 16.8 H Hct 51.1 H MCV MCH MCHC RDW Plt Count Lymph # Add Manual Diff Total Counted Seg Neutrophils % Seg Neuts % (Manual) Band Neutrophils % Lymphocytes % (Manual) Reactive Lymphs % (Man) Monocytes % (Manual) Eosinophils % (Manual) Basophils % (Manual) Metamyelocytes % Myelocytes % Promyelocytes % Blast Cells % Nucleated RBC % Seg Neutrophils # Man Band Neutrophils # Lymphocytes # (Manual) Abs React Lymphs (Man) Monocytes # (Manual) Eosinophils # (Manual) Basophils # (Manual) Metamyelocytes # Myelocytes # Promyelocytes # Blast Cells # WBC Morphology Hypersegmented Neuts Hyposegmented Neuts Hypogranular Neuts Smudge Cells Toxic Granulation Toxic Vacuolation Dohle Bodies Pelger-Huet Anomaly Dave Rods Platelet Estimate Clumped Platelets Plt Clumps, EDTA Large Platelets Giant Platelets Platelet Satelliting Plt Morphology Comment RBC Morphology Dimorphic RBCs Polychromasia Hypochromasia Poikilocytosis Anisocytosis Microcytosis Macrocytosis Spherocytes Pappenheimer Bodies Sickle Cells Target Cells Tear Drop Cells Ovalocytes Helmet Cells [place] Bodies Muse Rings [place] Cells Bite Cells Crenated Cell Elliptocytes Acanthocytes (Spur) Rouleaux Hemoglobin C Crystals Schistocytes Malaria parasites Jesús Bodies Hem Pathologist Commnt PT INR APTT POC ABG pH 7.095 L POC ABG pCO2 POC ABG pO2 77 L POC ABG HCO3 26.5 POC ABG Total CO2 29 POC ABG O2 Sat 88 POC ABG Base Excess -3 FiO2 80 Sodium Potassium Chloride Carbon Dioxide Anion Gap BUN Creatinine Estimated GFR BUN/Creatinine Ratio Glucose POC Glucose Lactic Acid 6.80 H* Calcium Total Bilirubin Direct Bilirubin Indirect Bilirubin AST ALT Alkaline Phosphatase Total Creatine Kinase CK-MB (CK-2) CK-MB (CK-2) Rel Index Troponin T Total Protein Albumin Albumin/Globulin Ratio Triglycerides Cholesterol LDL Cholesterol Direct HDL Cholesterol Cholesterol/HDL Ratio Urine Color Urine Turbidity Urine pH Ur Specific [place] Urine Protein Urine Glucose (UA) Urine Ketones Urine Blood Urine Nitrite Urine Bilirubin Urine Urobilinogen Ur Leukocyte Esterase Urine WBC (Auto) Urine RBC (Auto) U Epithel Cells (Auto) Urine Bacteria (Auto) Hyaline Casts Urine Mucus Blood Type Antibody Screen MARK Antibody Screen Crossmatch Assessment and Plan 1. UGI bleed - occurred during cpr and pt has not had further bleeding after admission; H/H normal. low suspicion for active/significant gi bleeding at present time. cont IV PPI for now 2. Acute liver injury - significant elevation in hepatocellular pattern with high INR; likely ischemic hepatitis in setting of hypotension. trend INR and liver enzymes, rule out other possible etiologies of acute liver injury (will check tylenol level, hep A/B serologies) 3. Respiratory failure 4. Septic shock
--- NOTE | 2018-12-23 09:40 | Consultation ---
History of Present Illness Consult date: 12/23/18 Requesting physician: BANDAR ORTIZ Reason for consult: other (Cardiac arrest) History of present illness: 58 y/o female, no known past medical history as she refused to go to the physician admitted was out of hospital arrest. patient had ROSC quickly in the field but then lost pulse again in transit and was being coded on arrival. Per , they "worked" on her at least a 20 minutes at their home before leaving to come here. Unsure of how long she coded in route and in the ED as this is not well documented. CT scan of head has been done which shows severe edema and effacement of sulci consistent with anoxic brain injury. and sister at bedside. They have made the patient a DNR. Per nursing, the was asking about withdrawal of care but I did not bring this up during my family discuss ion. Past History Past Medical History: other (unable to obtain) Past Surgical History: Other (no reported surgical history) Social history: other (UTO) Family history: other (UTO) Medications and Allergies Allergies Allergy/AdvReac Type Severity Reaction Status Date / Time Unable to Assess Allergy Verified 12/22/18 22:01 Active Meds: Active Medications Norepinephrine (Levophed Drip 4 Mg/Ns 250 Ml) 4 mg in 250 mls @ 7.5 mls/hr IV TITR BUD; Protocol Last Titration: 12/23/18 05:47 Dose: 5.33 mcg/min, 20 mls/hr Documented by: Pantoprazole Sodium 80 mg/ (Sodium Chloride) 100 mls @ 10 mls/hr IV DIRECT BUD Last Admin: 12/23/18 04:19 Dose: 8 mg/hr, 10 mls/hr Documented by: Octreotide Acetate 500 mcg/ (Sodium Chloride) 101 mls @ 5.05 mls/hr IV TITR BUD; Protocol Last Admin: 12/23/18 04:19 Dose: 25 mcg/hr, 5.05 mls/hr Documented by: Sodium Chloride (Nacl 0.9% 1000 Ml) 1,000 mls @ 75 mls/hr IV DIRECT BUD Last Admin: 12/23/18 04:20 Dose: 75 mls/hr Documented by: Piperacillin Sod/Tazobactam Sod (Zosyn/Ns 2.25 Gm/50ml) 2.25 gm in 50 mls @ 100 mls/hr IV Q6HR BUD Sodium Chloride (Nacl 0.9% 1000 Ml) 1,000 mls @ 0 mls/hr IV ONCE BUD Stop: 12/24/18 10:01 Ondansetron HCl (Zofran) 4 mg IV Q4H PRN PRN Reason: Nausea And Vomiting Sodium Chloride (Sodium Chloride Flush Syringe 10 Ml) 10 ml IV BID BUD Sodium Chloride (Sodium Chloride Flush Syringe 10 Ml) 10 ml IV PRN PRN PRN Reason: LINE FLUSH Review of Systems ROS unobtainable: due to endotracheal tube, due to mental status Physical Examination Vital signs: Vital Signs Pulse Resp 80 21 12/22/18 21:28 12/22/18 21:28 General appearance: comatose Eyes: non-icteric ENT: other (orally intubated) Neck: supple, no JVD Ascultation: Bilateral: clear, diminished breath sounds Percussion: Bilateral: not dull Cardiovascular: other (tachycardia, sinus) Gastrointestinal: soft Results - Laboratory Findings CBC and BMP: 12/23/18 07:16 12/23/18 04:24 ABG POC ABG pH 7.095 (7.35-7.45) L 12/23/18 05:33 POC ABG pO2 77 (80-105) L 12/23/18 05:33 POC ABG HCO3 26.5 (22-26 mml/L) 12/23/18 05:33 POC ABG Total CO2 29 (23-27mmol/L) 12/23/18 05:33 POC ABG O2 Sat 88 12/23/18 05:33 PT/INR, D-dimer PT 40.2 Sec. (12.2-14.9) H 12/23/18 04:24 INR 3.81 (0.87-1.13) H 12/23/18 04:24 Abnormal lab findings: Abnormal Labs 12/22/18 12/22/18 12/22/18 21:40 21:50 22:37 WBC RBC Hgb Hct MCV RDW Plt Count Seg Neuts % (Manual) Lymphocytes % (Manual) Nucleated RBC % Seg Neutrophils # Man Lymphocytes # (Manual) Monocytes # (Manual) PT INR APTT POC ABG pH POC ABG pO2 Sodium Potassium Chloride Carbon Dioxide BUN Creatinine Glucose POC Glucose 142 H Lactic Acid Calcium Direct Bilirubin AST ALT Alkaline Phosphatase Total Creatine Kinase CK-MB (CK-2) Troponin T Total Protein Albumin LDL Cholesterol Direct HDL Cholesterol Urine WBC (Auto) Crossmatch See Detail See Detail 12/22/18 12/22/18 12/22/18 22:55 22:55 22:55 WBC 32.1 H RBC Hgb Hct 44.7 H MCV 102 H RDW 17.5 H Plt Count 128 L Seg Neuts % (Manual) Lymphocytes % (Manual) Nucleated RBC % 11.5 H Seg Neutrophils # Man 20.2 H Lymphocytes # (Manual) 7.4 H Monocytes # (Manual) 1.1 H PT INR APTT POC ABG pH POC ABG pO2 Sodium 134 L Potassium 5.8 H Chloride 94.6 L Carbon Dioxide 17 L BUN 54 H Creatinine Glucose 193 H POC Glucose Lactic Acid Calcium 7.1 L Direct Bilirubin 0.6 H AST ALT Alkaline Phosphatase 149 H Total Creatine Kinase CK-MB (CK-2) Troponin T Total Protein 4.7 L Albumin 2.3 L LDL Cholesterol Direct HDL Cholesterol Urine WBC (Auto) Crossmatch 12/22/18 12/22/18 12/22/18 23:02 23:10 23:41 WBC RBC Hgb Hct MCV RDW Plt Count Seg Neuts % (Manual) Lymphocytes % (Manual) Nucleated RBC % Seg Neutrophils # Man Lymphocytes # (Manual) Monocytes # (Manual) PT INR APTT POC ABG pH 6.770 L POC ABG pO2 245 H Sodium Potassium Chloride Carbon Dioxide BUN Creatinine Glucose POC Glucose Lactic Acid 11.80 H* Calcium Direct Bilirubin AST ALT Alkaline Phosphatase Total Creatine Kinase CK-MB (CK-2) Troponin T Total Protein Albumin LDL Cholesterol Direct HDL Cholesterol Urine WBC (Auto) 16.0 H Crossmatch 12/23/18 12/23/18 12/23/18 00:14 00:47 01:56 WBC RBC Hgb 16.8 H D Hct 53.3 H D MCV RDW Plt Count Seg Neuts % (Manual) Lymphocytes % (Manual) Nucleated RBC % Seg Neutrophils # Man Lymphocytes # (Manual) Monocytes # (Manual) PT INR APTT POC ABG pH 6.963 L POC ABG pO2 339 H Sodium Potassium Chloride Carbon Dioxide BUN Creatinine Glucose POC Glucose Lactic Acid Calcium Direct Bilirubin AST 9955 H ALT 4619 H Alkaline Phosphatase Total Creatine Kinase CK-MB (CK-2) Troponin T Total Protein Albumin LDL Cholesterol Direct HDL Cholesterol Urine WBC (Auto) Crossmatch 12/23/18 12/23/18 12/23/18 01:56 03:35 04:01 WBC 32.4 H RBC 5.26 H Hgb 16.3 H Hct 49.6 H MCV RDW 17.3 H Plt Count 96 L Seg Neuts % (Manual) 72.5 H Lymphocytes % (Manual) 10.0 L Nucleated RBC % 12.5 H Seg Neutrophils # Man 23.5 H Lymphocytes # (Manual) Monocytes # (Manual) 1.6 H PT INR APTT POC ABG pH 7.268 L POC ABG pO2 68 L Sodium Potassium Chloride Carbon Dioxide BUN Creatinine Glucose POC Glucose Lactic Acid 9.00 H* Calcium Direct Bilirubin AST ALT Alkaline Phosphatase Total Creatine Kinase CK-MB (CK-2) Troponin T Total Protein Albumin LDL Cholesterol Direct HDL Cholesterol Urine WBC (Auto) Crossmatch 12/23/18 12/23/18 12/23/18 04:24 04:24 04:24 WBC RBC Hgb Hct MCV RDW Plt Count Seg Neuts % (Manual) Lymphocytes % (Manual) Nucleated RBC % Seg Neutrophils # Man Lymphocytes # (Manual) Monocytes # (Manual) PT 40.2 H INR 3.81 H APTT 48.7 H POC ABG pH POC ABG pO2 Sodium Potassium Chloride 95.4 L Carbon Dioxide BUN 57 H Creatinine 1.5 H Glucose 214 H POC Glucose Lactic Acid 8.60 H* Calcium 8.1 L Direct Bilirubin AST ALT Alkaline Phosphatase Total Creatine Kinase CK-MB (CK-2) Troponin T Total Protein Albumin LDL Cholesterol Direct HDL Cholesterol Urine WBC (Auto) Crossmatch 12/23/18 12/23/18 12/23/18 04:24 05:33 07:16 WBC RBC Hgb 16.8 H Hct 51.1 H MCV RDW Plt Count Seg Neuts % (Manual) Lymphocytes % (Manual) Nucleated RBC % Seg Neutrophils # Man Lymphocytes # (Manual) Monocytes # (Manual) PT INR APTT POC ABG pH 7.095 L POC ABG pO2 77 L Sodium Potassium Chloride Carbon Dioxide BUN Creatinine Glucose POC Glucose Lactic Acid Calcium Direct Bilirubin AST ALT Alkaline Phosphatase Total Creatine Kinase 528 H CK-MB (CK-2) 14.0 H Troponin T 0.088 H D Total Protein Albumin LDL Cholesterol Direct 46 L HDL Cholesterol 12 L Urine WBC (Auto) Crossmatch 12/23/18 07:20 WBC RBC Hgb Hct MCV RDW Plt Count Seg Neuts % (Manual) Lymphocytes % (Manual) Nucleated RBC % Seg Neutrophils # Man Lymphocytes # (Manual) Monocytes # (Manual) PT INR APTT POC ABG pH POC ABG pO2 Sodium Potassium Chloride Carbon Dioxide BUN Creatinine Glucose POC Glucose Lactic Acid 6.80 H* Calcium Direct Bilirubin AST ALT Alkaline Phosphatase Total Creatine Kinase CK-MB (CK-2) Troponin T Total Protein Albumin LDL Cholesterol Direct HDL Cholesterol Urine WBC (Auto) Crossmatch - Diagnostic Findings Chest x-ray: image reviewed CT scan - chest: image reviewed Assessment and Plan 58 y/o female with out of hospital cardiac arrest with prolonged downtime without circulation. 1. CT head consistent with diffuse anoxic brain injury and effacement of sulci from swelling. No herniation seen yet on CT. Family at bedside and I have discussed prognosis. She is a DNR and they are considering withdrawal. No further escalation of care at this point. Continue supportive therapy. CCT 31 minutes.
[2018-12-23] MEDS ORDERED: SODIUM CHLORIDE FLUSH SYRINGE 10 ML IV SCH (10:00)
--- NOTE | 2018-12-23 10:44 | Consultation ---
History of Present Illness Consult date: 12/23/18 Chief complaint: sbo - History of present illness History of present illness: 58 yo F with no PMHx presents to ER in cardiac arrest with multiple rounds of CPR and ROSC per notes. w/u in ER showed evidence of anoxic brain injury on CT head and possible bowel obstruction on CT abdomen/pelvis. Surgery is asked to see the patient for bowel obstruction. Patient unresponsive in bed. Family at bedside. Apparently they have already made her DNR and may pursue withdrawal of care once more family members arrive. Past History Past Medical History: other (unable to obtain) Past Surgical History: Other (no reported surgical history) Social history: other (UTO) Family history: other (UTO) Medications and Allergies Allergies Allergy/AdvReac Type Severity Reaction Status Date / Time Unable to Assess Allergy Verified 12/22/18 22:01 Active Meds: Active Medications Norepinephrine (Levophed Drip 4 Mg/Ns 250 Ml) 4 mg in 250 mls @ 7.5 mls/hr IV TITR BUD; Protocol Last Titration: 12/23/18 05:47 Dose: 5.33 mcg/min, 20 mls/hr Documented by: Pantoprazole Sodium 80 mg/ (Sodium Chloride) 100 mls @ 10 mls/hr IV DIRECT BUD Last Admin: 12/23/18 04:19 Dose: 8 mg/hr, 10 mls/hr Documented by: Octreotide Acetate 500 mcg/ (Sodium Chloride) 101 mls @ 5.05 mls/hr IV TITR BUD; Protocol Last Admin: 12/23/18 04:19 Dose: 25 mcg/hr, 5.05 mls/hr Documented by: Sodium Chloride (Nacl 0.9% 1000 Ml) 1,000 mls @ 75 mls/hr IV DIRECT BUD Last Admin: 12/23/18 04:20 Dose: 75 mls/hr Documented by: Piperacillin Sod/Tazobactam Sod (Zosyn/Ns 2.25 Gm/50ml) 2.25 gm in 50 mls @ 100 mls/hr IV Q6HR BUD Sodium Chloride (Nacl 0.9% 1000 Ml) 1,000 mls @ 0 mls/hr IV ONCE BUD Stop: 12/24/18 10:01 Ondansetron HCl (Zofran) 4 mg IV Q4H PRN PRN Reason: Nausea And Vomiting Sodium Chloride (Sodium Chloride Flush Syringe 10 Ml) 10 ml IV BID BUD Sodium Chloride (Sodium Chloride Flush Syringe 10 Ml) 10 ml IV PRN PRN PRN Reason: LINE FLUSH Review of Systems ROS unobtainable: due to endotracheal tube, due to mental status Exam Vital Signs Pulse Resp 80 21 12/22/18 21:28 12/22/18 21:28 Narrative exam: Gen; unresponsive on vent ENT: NGT with bloody drainage. ETT in place CV: s1, s2+ Resp: on vent full support Abd: distended Ext: no c/c/e Results - Labs 12/23/18 07:16 12/23/18 04:24 Abnormal lab results 12/22/18 12/22/18 12/22/18 Range/Units 21:40 21:50 22:37 WBC (4.5-11.0) K/mm3 RBC (3.65-5.03) M/mm3 Hgb (10.1-14.3) gm/dl Hct (30.3-42.9) % MCV (79-97) fl RDW (13.2-15.2) % Plt Count (140-440) K/mm3 Seg Neuts % (Manual) (40.0-70.0) % Lymphocytes % (Manual) (13.4-35.0) % Nucleated RBC % (0.0-0.9) % Seg Neutrophils # Man (1.8-7.7) K/mm3 Lymphocytes # (Manual) (1.2-5.4) K/mm3 Monocytes # (Manual) (0.0-0.8) K/mm3 PT (12.2-14.9) Sec. INR (0.87-1.13) APTT (24.2-36.6) Sec. POC ABG pH (7.35-7.45) POC ABG pO2 (80-105) Sodium (137-145) mmol/L Potassium (3.6-5.0) mmol/L Chloride (98-107) mmol/L Carbon Dioxide (22-30) mmol/L BUN (7-17) mg/dL Creatinine (0.7-1.2) mg/dL Glucose (65-100) mg/dL POC Glucose 142 H (70-105) Lactic Acid (0.7-2.0) mmol/L Calcium (8.4-10.2) mg/dL Direct Bilirubin (0-0.2) mg/dL AST (5-40) units/L ALT (7-56) units/L Alkaline Phosphatase (35-129) units/L Total Creatine Kinase (30-135) units/L CK-MB (CK-2) (0.0-4.0) ng/mL Troponin T (0.00-0.029) ng/mL Total Protein (6.3-8.2) g/dL Albumin (3.9-5) g/dL LDL Cholesterol Direct (50-130) mg/dL HDL Cholesterol (40-59) mg/dL Urine WBC (Auto) (0.0-6.0) /HPF Crossmatch See Detail See Detail 12/22/18 12/22/18 12/22/18 Range/Units 22:55 22:55 22:55 WBC 32.1 H (4.5-11.0) K/mm3 RBC (3.65-5.03) M/mm3 Hgb (10.1-14.3) gm/dl Hct 44.7 H (30.3-42.9) % MCV 102 H (79-97) fl RDW 17.5 H (13.2-15.2) % Plt Count 128 L (140-440) K/mm3 Seg Neuts % (Manual) (40.0-70.0) % Lymphocytes % (Manual) (13.4-35.0) % Nucleated RBC % 11.5 H (0.0-0.9) % Seg Neutrophils # Man 20.2 H (1.8-7.7) K/mm3 Lymphocytes # (Manual) 7.4 H (1.2-5.4) K/mm3 Monocytes # (Manual) 1.1 H (0.0-0.8) K/mm3 PT (12.2-14.9) Sec. INR (0.87-1.13) APTT (24.2-36.6) Sec. POC ABG pH (7.35-7.45) POC ABG pO2 (80-105) Sodium 134 L (137-145) mmol/L Potassium 5.8 H (3.6-5.0) mmol/L Chloride 94.6 L (98-107) mmol/L Carbon Dioxide 17 L (22-30) mmol/L BUN 54 H (7-17) mg/dL Creatinine (0.7-1.2) mg/dL Glucose 193 H (65-100) mg/dL POC Glucose (70-105) Lactic Acid (0.7-2.0) mmol/L Calcium 7.1 L (8.4-10.2) mg/dL Direct Bilirubin 0.6 H (0-0.2) mg/dL AST (5-40) units/L ALT (7-56) units/L Alkaline Phosphatase 149 H (35-129) units/L Total Creatine Kinase (30-135) units/L CK-MB (CK-2) (0.0-4.0) ng/mL Troponin T (0.00-0.029) ng/mL Total Protein 4.7 L (6.3-8.2) g/dL Albumin 2.3 L (3.9-5) g/dL LDL Cholesterol Direct (50-130) mg/dL HDL Cholesterol (40-59) mg/dL Urine WBC (Auto) (0.0-6.0) /HPF Crossmatch 12/22/18 12/22/18 12/22/18 Range/Units 23:02 23:10 23:41 WBC (4.5-11.0) K/mm3 RBC (3.65-5.03) M/mm3 Hgb (10.1-14.3) gm/dl Hct (30.3-42.9) % MCV (79-97) fl RDW (13.2-15.2) % Plt Count (140-440) K/mm3 Seg Neuts % (Manual) (40.0-70.0) % Lymphocytes % (Manual) (13.4-35.0) % Nucleated RBC % (0.0-0.9) % Seg Neutrophils # Man (1.8-7.7) K/mm3 Lymphocytes # (Manual) (1.2-5.4) K/mm3 Monocytes # (Manual) (0.0-0.8) K/mm3 PT (12.2-14.9) Sec. INR (0.87-1.13) APTT (24.2-36.6) Sec. POC ABG pH 6.770 L (7.35-7.45) POC ABG pO2 245 H (80-105) Sodium (137-145) mmol/L Potassium (3.6-5.0) mmol/L Chloride (98-107) mmol/L Carbon Dioxide (22-30) mmol/L BUN (7-17) mg/dL Creatinine (0.7-1.2) mg/dL Glucose (65-100) mg/dL POC Glucose (70-105) Lactic Acid 11.80 H* (0.7-2.0) mmol/L Calcium (8.4-10.2) mg/dL Direct Bilirubin (0-0.2) mg/dL AST (5-40) units/L ALT (7-56) units/L Alkaline Phosphatase (35-129) units/L Total Creatine Kinase (30-135) units/L CK-MB (CK-2) (0.0-4.0) ng/mL Troponin T (0.00-0.029) ng/mL Total Protein (6.3-8.2) g/dL Albumin (3.9-5) g/dL LDL Cholesterol Direct (50-130) mg/dL HDL Cholesterol (40-59) mg/dL Urine WBC (Auto) 16.0 H (0.0-6.0) /HPF Crossmatch 12/23/18 12/23/18 12/23/18 Range/Units 00:14 00:47 01:56 WBC (4.5-11.0) K/mm3 RBC (3.65-5.03) M/mm3 Hgb 16.8 H D (10.1-14.3) gm/dl Hct 53.3 H D (30.3-42.9) % MCV (79-97) fl RDW (13.2-15.2) % Plt Count (140-440) K/mm3 Seg Neuts % (Manual) (40.0-70.0) % Lymphocytes % (Manual) (13.4-35.0) % Nucleated RBC % (0.0-0.9) % Seg Neutrophils # Man (1.8-7.7) K/mm3 Lymphocytes # (Manual) (1.2-5.4) K/mm3 Monocytes # (Manual) (0.0-0.8) K/mm3 PT (12.2-14.9) Sec. INR (0.87-1.13) APTT (24.2-36.6) Sec. POC ABG pH 6.963 L (7.35-7.45) POC ABG pO2 339 H (80-105) Sodium (137-145) mmol/L Potassium (3.6-5.0) mmol/L Chloride (98-107) mmol/L Carbon Dioxide (22-30) mmol/L BUN (7-17) mg/dL Creatinine (0.7-1.2) mg/dL Glucose (65-100) mg/dL POC Glucose (70-105) Lactic Acid (0.7-2.0) mmol/L Calcium (8.4-10.2) mg/dL Direct Bilirubin (0-0.2) mg/dL AST 9955 H (5-40) units/L ALT 4619 H (7-56) units/L Alkaline Phosphatase (35-129) units/L Total Creatine Kinase (30-135) units/L CK-MB (CK-2) (0.0-4.0) ng/mL Troponin T (0.00-0.029) ng/mL Total Protein (6.3-8.2) g/dL Albumin (3.9-5) g/dL LDL Cholesterol Direct (50-130) mg/dL HDL Cholesterol (40-59) mg/dL Urine WBC (Auto) (0.0-6.0) /HPF Crossmatch 12/23/18 12/23/18 12/23/18 Range/Units 01:56 03:35 04:01 WBC 32.4 H (4.5-11.0) K/mm3 RBC 5.26 H (3.65-5.03) M/mm3 Hgb 16.3 H (10.1-14.3) gm/dl Hct 49.6 H (30.3-42.9) % MCV (79-97) fl RDW 17.3 H (13.2-15.2) % Plt Count 96 L (140-440) K/mm3 Seg Neuts % (Manual) 72.5 H (40.0-70.0) % Lymphocytes % (Manual) 10.0 L (13.4-35.0) % Nucleated RBC % 12.5 H (0.0-0.9) % Seg Neutrophils # Man 23.5 H (1.8-7.7) K/mm3 Lymphocytes # (Manual) (1.2-5.4) K/mm3 Monocytes # (Manual) 1.6 H (0.0-0.8) K/mm3 PT (12.2-14.9) Sec. INR (0.87-1.13) APTT (24.2-36.6) Sec. POC ABG pH 7.268 L (7.35-7.45) POC ABG pO2 68 L (80-105) Sodium (137-145) mmol/L Potassium (3.6-5.0) mmol/L Chloride (98-107) mmol/L Carbon Dioxide (22-30) mmol/L BUN (7-17) mg/dL Creatinine (0.7-1.2) mg/dL Glucose (65-100) mg/dL POC Glucose (70-105) Lactic Acid 9.00 H* (0.7-2.0) mmol/L Calcium (8.4-10.2) mg/dL Direct Bilirubin (0-0.2) mg/dL AST (5-40) units/L ALT (7-56) units/L Alkaline Phosphatase (35-129) units/L Total Creatine Kinase (30-135) units/L CK-MB (CK-2) (0.0-4.0) ng/mL Troponin T (0.00-0.029) ng/mL Total Protein (6.3-8.2) g/dL Albumin (3.9-5) g/dL LDL Cholesterol Direct (50-130) mg/dL HDL Cholesterol (40-59) mg/dL Urine WBC (Auto) (0.0-6.0) /HPF Crossmatch 12/23/18 12/23/18 12/23/18 Range/Units 04:24 04:24 04:24 WBC (4.5-11.0) K/mm3 RBC (3.65-5.03) M/mm3 Hgb (10.1-14.3) gm/dl Hct (30.3-42.9) % MCV (79-97) fl RDW (13.2-15.2) % Plt Count (140-440) K/mm3 Seg Neuts % (Manual) (40.0-70.0) % Lymphocytes % (Manual) (13.4-35.0) % Nucleated RBC % (0.0-0.9) % Seg Neutrophils # Man (1.8-7.7) K/mm3 Lymphocytes # (Manual) (1.2-5.4) K/mm3 Monocytes # (Manual) (0.0-0.8) K/mm3 PT 40.2 H (12.2-14.9) Sec. INR 3.81 H (0.87-1.13) APTT 48.7 H (24.2-36.6) Sec. POC ABG pH (7.35-7.45) POC ABG pO2 (80-105) Sodium (137-145) mmol/L Potassium (3.6-5.0) mmol/L Chloride 95.4 L (98-107) mmol/L Carbon Dioxide (22-30) mmol/L BUN 57 H (7-17) mg/dL Creatinine 1.5 H (0.7-1.2) mg/dL Glucose 214 H (65-100) mg/dL POC Glucose (70-105) Lactic Acid 8.60 H* (0.7-2.0) mmol/L Calcium 8.1 L (8.4-10.2) mg/dL Direct Bilirubin (0-0.2) mg/dL AST (5-40) units/L ALT (7-56) units/L Alkaline Phosphatase (35-129) units/L Total Creatine Kinase (30-135) units/L CK-MB (CK-2) (0.0-4.0) ng/mL Troponin T (0.00-0.029) ng/mL Total Protein (6.3-8.2) g/dL Albumin (3.9-5) g/dL LDL Cholesterol Direct (50-130) mg/dL HDL Cholesterol (40-59) mg/dL Urine WBC (Auto) (0.0-6.0) /HPF Crossmatch 12/23/18 12/23/18 12/23/18 Range/Units 04:24 05:33 07:16 WBC (4.5-11.0) K/mm3 RBC (3.65-5.03) M/mm3 Hgb 16.8 H (10.1-14.3) gm/dl Hct 51.1 H (30.3-42.9) % MCV (79-97) fl RDW (13.2-15.2) % Plt Count (140-440) K/mm3 Seg Neuts % (Manual) (40.0-70.0) % Lymphocytes % (Manual) (13.4-35.0) % Nucleated RBC % (0.0-0.9) % Seg Neutrophils # Man (1.8-7.7) K/mm3 Lymphocytes # (Manual) (1.2-5.4) K/mm3 Monocytes # (Manual) (0.0-0.8) K/mm3 PT (12.2-14.9) Sec. INR (0.87-1.13) APTT (24.2-36.6) Sec. POC ABG pH 7.095 L (7.35-7.45) POC ABG pO2 77 L (80-105) Sodium (137-145) mmol/L Potassium (3.6-5.0) mmol/L Chloride (98-107) mmol/L Carbon Dioxide (22-30) mmol/L BUN (7-17) mg/dL Creatinine (0.7-1.2) mg/dL Glucose (65-100) mg/dL POC Glucose (70-105) Lactic Acid (0.7-2.0) mmol/L Calcium (8.4-10.2) mg/dL Direct Bilirubin (0-0.2) mg/dL AST (5-40) units/L ALT (7-56) units/L Alkaline Phosphatase (35-129) units/L Total Creatine Kinase 528 H (30-135) units/L CK-MB (CK-2) 14.0 H (0.0-4.0) ng/mL Troponin T 0.088 H D (0.00-0.029) ng/mL Total Protein (6.3-8.2) g/dL Albumin (3.9-5) g/dL LDL Cholesterol Direct 46 L (50-130) mg/dL HDL Cholesterol 12 L (40-59) mg/dL Urine WBC (Auto) (0.0-6.0) /HPF Crossmatch 12/23/18 Range/Units 07:20 WBC (4.5-11.0) K/mm3 RBC (3.65-5.03) M/mm3 Hgb (10.1-14.3) gm/dl Hct (30.3-42.9) % MCV (79-97) fl RDW (13.2-15.2) % Plt Count (140-440) K/mm3 Seg Neuts % (Manual) (40.0-70.0) % Lymphocytes % (Manual) (13.4-35.0) % Nucleated RBC % (0.0-0.9) % Seg Neutrophils # Man (1.8-7.7) K/mm3 Lymphocytes # (Manual) (1.2-5.4) K/mm3 Monocytes # (Manual) (0.0-0.8) K/mm3 PT (12.2-14.9) Sec. INR (0.87-1.13) APTT (24.2-36.6) Sec. POC ABG pH (7.35-7.45) POC ABG pO2 (80-105) Sodium (137-145) mmol/L Potassium (3.6-5.0) mmol/L Chloride (98-107) mmol/L Carbon Dioxide (22-30) mmol/L BUN (7-17) mg/dL Creatinine (0.7-1.2) mg/dL Glucose (65-100) mg/dL POC Glucose (70-105) Lactic Acid 6.80 H* (0.7-2.0) mmol/L Calcium (8.4-10.2) mg/dL Direct Bilirubin (0-0.2) mg/dL AST (5-40) units/L ALT (7-56) units/L Alkaline Phosphatase (35-129) units/L Total Creatine Kinase (30-135) units/L CK-MB (CK-2) (0.0-4.0) ng/mL Troponin T (0.00-0.029) ng/mL Total Protein (6.3-8.2) g/dL Albumin (3.9-5) g/dL LDL Cholesterol Direct (50-130) mg/dL HDL Cholesterol (40-59) mg/dL Urine WBC (Auto) (0.0-6.0) /HPF Crossmatch Diabetes panel 12/22/18 12/22/18 12/23/18 Range/Units 22:55 22:55 00:14 Sodium 134 L (137-145) mmol/L Potassium 5.8 H (3.6-5.0) mmol/L Chloride 94.6 L (98-107) mmol/L Carbon Dioxide 17 L (22-30) mmol/L BUN 54 H (7-17) mg/dL Creatinine 1.2 (0.7-1.2) mg/dL Glucose 193 H (65-100) mg/dL Calcium 7.1 L (8.4-10.2) mg/dL AST TNR 9955 H ALT TNR 4619 H Alkaline Phosphatase 149 H (35-129) units/L Total Protein 4.7 L (6.3-8.2) g/dL Albumin 2.3 L (3.9-5) g/dL Triglycerides (2-149) mg/dL HDL Cholesterol (40-59) mg/dL 12/23/18 12/23/18 Range/Units 04:24 04:24 Sodium 139 (137-145) mmol/L Potassium 4.8 (3.6-5.0) mmol/L Chloride 95.4 L (98-107) mmol/L Carbon Dioxide 26 D (22-30) mmol/L BUN 57 H (7-17) mg/dL Creatinine 1.5 H (0.7-1.2) mg/dL Glucose 214 H (65-100) mg/dL Calcium 8.1 L (8.4-10.2) mg/dL AST ALT Alkaline Phosphatase (35-129) units/L Total Protein (6.3-8.2) g/dL Albumin (3.9-5) g/dL Triglycerides 110 (2-149) mg/dL HDL Cholesterol 12 L (40-59) mg/dL Calcium panel 12/22/18 12/22/18 12/23/18 Range/Units 22:55 22:55 04:24 Calcium 7.1 L 8.1 L (8.4-10.2) mg/dL Albumin 2.3 L (3.9-5) g/dL Pituitary panel 12/22/18 12/23/18 Range/Units 22:55 04:24 Sodium 134 L 139 (137-145) mmol/L Potassium 5.8 H 4.8 (3.6-5.0) mmol/L Chloride 94.6 L 95.4 L (98-107) mmol/L Carbon Dioxide 17 L 26 D (22-30) mmol/L BUN 54 H 57 H (7-17) mg/dL Creatinine 1.2 1.5 H (0.7-1.2) mg/dL Glucose 193 H 214 H (65-100) mg/dL Calcium 7.1 L 8.1 L (8.4-10.2) mg/dL Adrenal panel 12/22/18 12/22/18 12/23/18 Range/Units 22:55 22:55 00:14 Sodium 134 L (137-145) mmol/L Potassium 5.8 H (3.6-5.0) mmol/L Chloride 94.6 L (98-107) mmol/L Carbon Dioxide 17 L (22-30) mmol/L BUN 54 H (7-17) mg/dL Creatinine 1.2 (0.7-1.2) mg/dL Glucose 193 H (65-100) mg/dL Calcium 7.1 L (8.4-10.2) mg/dL Total Bilirubin 0.80 (0.1-1.2) mg/dL AST TNR 9955 H ALT TNR 4619 H Alkaline Phosphatase 149 H (35-129) units/L Total Protein 4.7 L (6.3-8.2) g/dL Albumin 2.3 L (3.9-5) g/dL 12/23/18 Range/Units 04:24 Sodium 139 (137-145) mmol/L Potassium 4.8 (3.6-5.0) mmol/L Chloride 95.4 L (98-107) mmol/L Carbon Dioxide 26 D (22-30) mmol/L BUN 57 H (7-17) mg/dL Creatinine 1.5 H (0.7-1.2) mg/dL Glucose 214 H (65-100) mg/dL Calcium 8.1 L (8.4-10.2) mg/dL Total Bilirubin (0.1-1.2) mg/dL AST ALT Alkaline Phosphatase (35-129) units/L Total Protein (6.3-8.2) g/dL Albumin (3.9-5) g/dL - Imaging CT scan - abdomen: report reviewed, image reviewed CT scan - pelvis: report reviewed, image reviewed Assessment and Plan 58 yo F with 1. s/p cardiac arrest 2. VDRF 3. anoxic brain injury 4. possible SBO Plan: 1. continue current supportive care per ICU 2. continue NGT to [facility] 3. With patient's current condition, she is a very poor surgical candidate. Would not advise any surgical intervention at this time. Family understands and agrees. Poor prognosis Thank you, please call with questions.
[2018-12-23] MEDS ORDERED: INTROPIN DRIP 800 MG/D5W 250 ML 800 MG/250 ML BAG IV ONE (10:47)
[2018-12-23] MEDS ORDERED: ZOSYN/NS 2.25 GM/50ML 2.25 GM/50 ML BAG IV SCH (12:00)
[2018-12-23 12:01] VITALS: BP 0/0
--- NOTE | 2018-12-23 12:05 | Event Note ---
Date: 12/23/18 Called to bedside secondary to EKG changes. Sinus tach but complex is wide. Checked pulse and non present. Patient is a DNR. Family elected to stop medications and withdraw care. Asystole documented at 12:00. All family at bedside.
--- NOTE | 2018-12-23 13:51 | Event Note ---
Date: 12/23/18 Yovani Chowdary called, I ran the code. Pulse restored. Then had a family meeting (, et. al) in the conference room. Then I had another family meeting at bedside. At this point, family made DNR and considering withdrawals. CCT 32 minutes
--- NOTE | 2018-12-23 14:04 | Progress Note ---
Assessment and Plan Assessment and plan: Patient is a 58 -year-old woman with known medical problems was brought to the emergency room because she collapse at home. Spouse admits that state that since last week she has not been feeling well, she had cough productive of yellow phlegm, shortness of breath, generalized weakness, decrease in her ADLs, decreased appetite and sleeping alot. She took a shower last night and complained of her shoulders were hurting, the house and was given her muscle which then she became unresponsive. Normal skull, he started CPR and continued for about 6 minutes before EMS arrived. The by mouth was continued by me and here in the hospital, she was intubated in the emergency room. There was about 400 mL of blood that was suctioned. Hypotensive, started on the levophed and dopamine drip, given Zosyn. Review of system is unobtainable Cardiac arrest Acute respiratory failure Septic shock Bilateral pneumonia in light small bowel obstruction Upper GI bleed Partial small bowel obstruction Anoxic brain injury Urinary tract infection Hyperkalemia Notable rib fractures Shock liver Alcohol abuse Plan Admit to medicine Continue Levophed, dopamkine drip, start iv fluid, antibiotics Start Protonix, octreotide drip, check serial hemoglobin Consult GI, critical care, cardiology Check cardiac enzymes, echo, PT/INR G-tube in place, consult surgery Give cocktail for hyperkalemia Prognosis is poor, discussed with and sister at bedside DVT prophylaxis Addendum Coagulopathy, transfuse 1 unit FFP 1. UGI bleed - occurred during cpr and pt has not had further bleeding after admission; H/H normal. low suspicion for active/significant gi bleeding at present time. cont IV PPI for now 2. Acute liver injury - significant elevation in hepatocellular pattern with high INR; likely ischemic hepatitis in setting of hypotension. trend INR and liver enzymes, rule out other possible etiologies of acute liver injury (will check tylenol level, hep A/B serologies) 3. Respiratory failure 4. Septic shock History Interval history: Patient was seen and examined. Follow-up on current diagnosis. No overnight events reported to me. Patient denies any chest pain, shortness breath, nausea/vomiting or severe headaches. Imaging, nursing note, chart, labs and old chart reviewed. Discussed with patient. Gen: WDWN, NAD, Awake, Alert, Orientated HEENT: NCAT, EOMI, PERRL, OP Clear Neck: supple, no adenopathy, no thyromegaly, no JVD CVS/Heart: RRR, normal S1S2, pulses present bilaterally Chest/Lungs: CTA B, Symmetrical chest expansion, good air entry bilaterally GI/Abdomen: soft, NTND, good bowel sounds, no guarding or rebound /Bladder: no suprapubic tenderness, no CVA or paraspinal tenderness Extermity/Skin: no c/c/e, no obvious rash MSK: FROM x 4 Neuro: CN 2-12 grossly intact, no new focal deficits Psych: calm Hospitalist Physical - Constitutional Vitals: Temp Pulse Resp BP Pulse Ox 97.9 F 100 H 0 L 0/0 0 L 12/23/18 08:00 12/23/18 11:51 12/23/18 12:00 12/23/18 12:00 12/23/18 12:00 Results - Labs CBC & Chem 7: 12/23/18 07:16 12/23/18 04:24 Labs: Laboratory Last Values WBC 32.4 K/mm3 (4.5-11.0) H 12/23/18 03:35 RBC 5.26 M/mm3 (3.65-5.03) H 12/23/18 03:35 Hgb 16.8 gm/dl (10.1-14.3) H 12/23/18 07:16 Hct 51.1 % (30.3-42.9) H 12/23/18 07:16 MCV 94 fl (79-97) 12/23/18 03:35 MCH 31 pg (28-32) 12/23/18 03:35 MCHC 33 % (30-34) 12/23/18 03:35 RDW 17.3 % (13.2-15.2) H 12/23/18 03:35 Plt Count 96 K/mm3 (140-440) L 12/23/18 03:35 Lymph # Small Business Representative 12/22/18 22:55 Add Manual Diff Complete 12/23/18 03:35 Total Counted 200 12/23/18 03:35 Seg Neutrophils % Small [employer] Representative 12/23/18 03:35 Seg Neuts % (Manual) 72.5 % (40.0-70.0) H 12/23/18 03:35 11.0 % 12/23/18 03:35 10.0 % (13.4-35.0) L 12/23/18 03:35 Reactive Lymphs % (Man) 1.5 % 12/23/18 03:35 5.0 % (0.0-7.3) 12/23/18 03:35 0 % (0.0-4.3) 12/23/18 03:35 0 % (0.0-1.8) 12/23/18 03:35 0 % 12/23/18 03:35 0 % 12/23/18 03:35 0 % 12/23/18 03:35 0 % 12/23/18 03:35 Nucleated RBC % 12.5 % (0.0-0.9) H 12/23/18 03:35 Seg Neutrophils # Man 23.5 K/mm3 (1.8-7.7) H 12/23/18 03:35 Band Neutrophils # 3.6 K/mm3 12/23/18 03:35 3.2 K/mm3 (1.2-5.4) 12/23/18 03:35 Abs React Lymphs (Man) 0.5 K/mm3 12/23/18 03:35 1.6 K/mm3 (0.0-0.8) H 12/23/18 03:35 0.0 K/mm3 (0.0-0.4) 12/23/18 03:35 0.0 K/mm3 (0.0-0.1) 12/23/18 03:35 0.0 K/mm3 12/23/18 03:35 0.0 K/mm3 12/23/18 03:35 0.0 K/mm3 12/23/18 03:35 Blast Cells # 0.0 K/mm3 12/23/18 03:35 WBC Morphology Not Reportable 12/23/18 03:35 WBC Morphology TNR 12/23/18 03:35 Hypersegmented Neuts Not Reportable 12/23/18 03:35 Hyposegmented Neuts Not Reportable 12/23/18 03:35 Hypogranular Neuts Not Reportable 12/23/18 03:35 Not Reportable 12/23/18 03:35 Not Reportable 12/23/18 03:35 Not Reportable 12/23/18 03:35 Not Reportable 12/23/18 03:35 Not Reportable 12/23/18 03:35 Not Reportable 12/23/18 03:35 Consistent w auto 12/23/18 03:35 Not Reportable 12/23/18 03:35 Plt Clumps, EDTA Not Reportable 12/23/18 03:35 Not Reportable 12/23/18 03:35 Not Reportable 12/23/18 03:35 Not Reportable 12/23/18 03:35 Plt Morphology Comment Not Reportable 12/23/18 03:35 RBC Morphology Not Reportable 12/23/18 03:35 Dimorphic RBCs Not Reportable 12/23/18 03:35 Not Reportable 12/23/18 03:35 Not Reportable 12/23/18 03:35 Not Reportable 12/23/18 03:35 1+ 12/23/18 03:35 Not Reportable 12/23/18 03:35 1+ 12/23/18 03:35 Not Reportable 12/23/18 03:35 Not Reportable 12/23/18 03:35 Not Reportable 12/23/18 03:35 Not Reportable 12/23/18 03:35 Not Reportable 12/23/18 03:35 Not Reportable 12/23/18 03:35 Not Reportable 12/23/18 03:35 Not Reportable 12/23/18 03:35 Not Reportable 12/23/18 03:35 Not Reportable 12/23/18 03:35 Not Reportable 12/23/18 03:35 Not Reportable 12/23/18 03:35 Not Reportable 12/23/18 03:35 Acanthocytes (Spur) Not Reportable 12/23/18 03:35 Rouleaux Not Reportable 12/23/18 03:35 Not Reportable 12/23/18 03:35 Not Reportable 12/23/18 03:35 Not Reportable 12/23/18 03:35 Not Reportable 12/23/18 03:35 Hem Pathologist Commnt No 12/23/18 03:35 PT 40.2 Sec. (12.2-14.9) H 12/23/18 04:24 INR 3.81 (0.87-1.13) H 12/23/18 04:24 APTT 48.7 Sec. (24.2-36.6) H 12/23/18 04:24 POC ABG pH 7.095 (7.35-7.45) L 12/23/18 05:33 POC ABG pCO2 43.0 (35-45) 12/23/18 04:01 POC ABG pO2 77 (80-105) L 12/23/18 05:33 POC ABG HCO3 26.5 (22-26 mml/L) 12/23/18 05:33 POC ABG Total CO2 29 (23-27mmol/L) 12/23/18 05:33 POC ABG O2 Sat 88 12/23/18 05:33 POC ABG Base Excess -3 ((-2) - (+3)mmol/L) 12/23/18 05:33 80 % 12/23/18 05:33 Sodium 139 mmol/L (137-145) 12/23/18 04:24 Potassium 4.8 mmol/L (3.6-5.0) 12/23/18 04:24 Chloride 95.4 mmol/L (98-107) L 12/23/18 04:24 Carbon Dioxide 26 mmol/L (22-30) D 12/23/18 04:24 22 mmol/L 12/23/18 04:24 BUN 57 mg/dL (7-17) H 12/23/18 04:24 1.5 mg/dL (0.7-1.2) H 12/23/18 04:24 Estimated GFR 36 ml/min 12/23/18 04:24 38 % 12/23/18 04:24 Glucose 214 mg/dL (65-100) H 12/23/18 04:24 POC Glucose 142 (70-105) H 12/22/18 21:40 Lactic Acid 6.80 mmol/L (0.7-2.0) H* 12/23/18 07:20 Calcium 8.1 mg/dL (8.4-10.2) L 12/23/18 04:24 0.80 mg/dL (0.1-1.2) 12/22/18 22:55 0.6 mg/dL (0-0.2) H 12/22/18 22:55 0.2 mg/dL 12/22/18 22:55 AST 9955 units/L (5-40) H 12/23/18 00:14 ALT 4619 units/L (7-56) H 12/23/18 00:14 149 units/L (35-129) H 12/22/18 22:55 528 units/L (30-135) H 12/23/18 04:24 CK-MB (CK-2) 14.0 ng/mL (0.0-4.0) H 12/23/18 04:24 CK-MB (CK-2) Rel Index 2.6 (0-4) 12/23/18 04:24 0.088 ng/mL (0.00-0.029) H D 12/23/18 04:24 4.7 g/dL (6.3-8.2) L 12/22/18 22:55 2.3 g/dL (3.9-5) L 12/22/18 22:55 1.0 % 12/22/18 22:55 Triglycerides 110 mg/dL (2-149) 12/23/18 04:24 Cholesterol 75 mg/dL (50-199) 12/23/18 04:24 46 mg/dL (50-130) L 12/23/18 04:24 12 mg/dL (40-59) L 12/23/18 04:24 6.25 % 12/23/18 04:24 Deisy (Yellow) 12/22/18 23:10 Cloudy (Clear) 12/22/18 23:10 5.0 (5.0-7.0) 12/22/18 23:10 Ur Specific [place] 1.019 (1.003-1.030) 12/22/18 23:10 100 mg/dl mg/dL (Negative) 12/22/18 23:10 Neg mg/dL (Negative) 12/22/18 23:10 Neg mg/dL (Negative) 12/22/18 23:10 Neg (Negative) 12/22/18 23:10 Neg (Negative) 12/22/18 23:10 Neg (Negative) 12/22/18 23:10 4.0 mg/dL (<2.0) 12/22/18 23:10 Ur Leukocyte Esterase Neg (Negative) 12/22/18 23:10 16.0 /HPF (0.0-6.0) H 12/22/18 23:10 7.0 /HPF (0.0-6.0) 12/22/18 23:10 U Epithel Cells (Auto) 4.0 /HPF (0-13.0) 12/22/18 23:10 1+ /HPF (Negative) 12/22/18 23:10 Hyaline Casts 8 /LPF 12/22/18 23:10 3+ /HPF 12/22/18 23:10 Blood Type Cancelled 12/22/18 22:37 Antibody Screen Cancelled 12/22/18 22:37 MARK Antibody Screen Negative 12/22/18 21:50 Crossmatch See Detail 12/22/18 22:37 Active Medications - Current Medications Current Medications: Generic Name Dose Route Start Last Admin Trade Name Freq PRN Reason Stop Dose Admin Norepinephrine 4 mg in 250 mls @ 7.5 mls/hr 12/22/18 22:12 12/23/18 05:47 Levophed Drip 4 Mg/Ns 250 Ml IV 5.33 mcg/min TITR BUD 20 mls/hr Titration Protocol 2 MCG/MIN Pantoprazole Sodium 80 mg/ 100 mls @ 10 mls/hr 12/23/18 04:00 12/23/18 04:19 Sodium Chloride IV 8 mg/hr DIRECT BUD 10 mls/hr Administration 8 MG/HR Octreotide Acetate 500 mcg/ 101 mls @ 5.05 mls/hr 12/23/18 03:17 12/23/18 04:19 Sodium Chloride IV 25 mcg/hr TITR BUD 5.05 mls/hr Administration Protocol 25 MCG/HR Sodium Chloride 1,000 mls @ 75 mls/hr 12/23/18 04:00 12/23/18 04:20 Nacl 0.9% 1000 Ml IV 75 mls/hr DIRECT BUD Administration Piperacillin Sod/Tazobactam Sod 2.25 gm in 50 mls @ 100 mls/hr 12/23/18 12:00 Zosyn/Ns 2.25 Gm/50ml IV Q6HR BUD Sodium Chloride 1,000 mls @ 0 mls/hr 12/23/18 10:00 Nacl 0.9% 1000 Ml IV 12/24/18 10:01 ONCE BUD As Directed Ondansetron HCl 4 mg 12/23/18 03:19 Zofran IV Q4H PRN Nausea And Vomiting Sodium Chloride 10 ml 12/23/18 10:00 Sodium Chloride Flush Syringe 10 Ml IV BID BUD Sodium Chloride 10 ml 12/23/18 03:19 Sodium Chloride Flush Syringe 10 Ml IV PRN PRN LINE FLUSH
--- NOTE | 2018-12-23 14:09 | Death Summary ---
Summary - Providers Date of service: 12/23/18 Consults: 12/22/18 23:29 Consult to Physician [CONS] Stat Comment: Dr. Li spoke with Dr. Hamilton @ [id number] Consulting Provider: LAVERNE HAMILTON Physician Instructions: Reason For Exam: GI BLEEDING 12/23/18 02:48 Consult to Physician [CONS] Stat Comment: Consulting Provider: NICK HORTA Physician Instructions: Reason For Exam: cardiopulmonary arrest 12/23/18 03:19 Consult to Physician [CONS] Routine Comment: Consulting Provider: MICHAEL GIBSON Physician Instructions: Reason For Exam: sbo 12/23/18 06:40 Consult to Physician [CONS] Routine Comment: Consulting Provider: REHAN HERNANDEZ Physician Instructions: Reason For Exam: cardiac arrest Attending: BANDAR ORTIZ - summary Date of admission: 12/23/18 07:55 Date of : 12/23/18 Significant findings: Patient is a 58 -year-old woman with a history of tobacco and alcohol dependency who was brought to the emergency room because she Cardiopulmonary arrest at home. started CPR and continued for about 6 minutes before EMS arrived. She was intubated in the emergency room. There was about 400 mL of blood that was suctioned from her mouth. She was hypotensive, started on the levophed and dopamine drip, given Zosyn. She continued to have another Cardiopulmonary arrest. Cardiopulmonary arrest Acute respiratory failure Septic shock Bilateral pneumonia in light small bowel obstruction Upper GI bleed Partial small bowel obstruction Anoxic brain injury Urinary tract infection Hyperkalemia Notable rib fractures Shock liver Alcohol abuse Acute liver failure hypoperfusion Acute encephalopathy, poa Acute renal failure, atn, poa Severe malnutrition, poa Patient today, 12/23/18, pronounced by Dr. Horta, 1200. Cause of : Not entire sure what problem came first. Best guess is Septic Shock
== END 2018-12-23 12:00 | DRG 871 ==
LOC: ED 21:25 → CC1 12-23 07:55
PROVIDERS: ADMIT Internal Medicine; ATTEND Internal Medicine
PROC: 5A12012 Performance of Cardiac Output, Single, Manual (ICD-10-PCS; principal; 2018-12-23)
PROC: 06HY33Z Insertion of Infusion Device into Lower Vein, Percutaneous Approach (ICD-10-PCS; 2018-12-23)
PROC: 0D9670Z Drainage of Stomach with Drainage Device, Via Natural or Artificial Opening (ICD-10-PCS; 2018-12-23)
PROC: 30233N1 Transfusion of Nonautologous Red Blood Cells into Peripheral Vein, Percutaneous Approach (ICD-10-PCS; 2018-12-23)
PROC: 4A033R1 Measurement of Arterial Saturation, Peripheral, Percutaneous Approach (ICD-10-PCS; 2018-12-23)
PROC: 5A1935Z Respiratory Ventilation, Less than 24 Consecutive Hours (ICD-10-PCS; 2018-12-23)
PROC: 0BH17EZ Insertion of Endotracheal Airway into Trachea, Via Natural or Artificial Opening (ICD-10-PCS; 2018-12-23)
DX: A41.9 Sepsis, unspecified organism (principal); J18.9 Pneumonia, unspecified organism; R65.21 Severe sepsis with septic shock; J96.00 Acute respiratory failure, unspecified whether with hypoxia or hypercapnia; K72.00 Acute and subacute hepatic failure without coma; N17.0 Acute kidney failure with tubular necrosis; E43 Unspecified severe protein-calorie malnutrition; S22.39XA Fracture of one rib, unspecified side, initial encounter for closed fracture; K56.600 Partial intestinal obstruction, unspecified as to cause; N39.0 Urinary tract infection, site not specified; G93.1 Anoxic brain damage, not elsewhere classified; I46.9 Cardiac arrest, cause unspecified; F10.10 Alcohol abuse, uncomplicated; Z66 Do not resuscitate; Y90.9 Presence of alcohol in blood, level not specified; E87.5 Hyperkalemia; X58.XXXA Exposure to other specified factors, initial encounter; Y93.89 Activity, other specified; Z82.49 Family history of ischemic heart disease and other diseases of the circulatory system; Y92.098 Other place in other non-institutional residence as the place of occurrence of the external cause; Y99.8 Other external cause status; Z68.24 Body mass index [BMI] 24.0-24.9, adult
CPT/HCPCS: 36415; 36430; 70450; 71045; 71275; 74177; 80048; 80061; 80076; 81001; 82140; 82550; 82553; 82803; 82962; 84450; 84460; 84484; 85007; 85014; 85018; 85025; 85610; 85730; 86850; 86900; 86901; 86920; 87040; 87070; 87205; 93005; 93010; 94002; 96365; 96366; 96367; 96368; 96372; 96375; 99292; G0378; C9113; J0171; J1265; J1815; J2354; J2543; J3370; J7030; J7120; P9016; Q9967